=== PATIENT | female | born 1955 | race Caucasian/White ===

== ENCOUNTER 2019-12-09 15:07 | Outpatient (CLI) | payer OTHER, SELFPAY ==
--- NOTE | ~2019-12-09 | CT_ITS ---
EXAMINATION: CT pelvis wo con EXAM DATE: 12/09/2019 15:40 INDICATION: Right lower quadrant pain. TECHNIQUE: Spiral CT pelvis wo con was performed without contrast. Axial, coronal and sagittal imag es were reviewed. The dose-length product (DLP) for this examination was 376.26 mGy-cm. The exposur e was tailored according to patient size (auto mA exposure control), and iterative reconstruction ( IR) was used as additional dose reduction technique. There is no prior study for comparison. FINDINGS: No inguinal hernias. Appendix is normal. Unremarkable imaged portions of colon and small janie wel. Uterus and bladder are unremarkable. No pelvic lymphadenopathy. There are no osseous abnormaliti es identified. IMPRESSION: Unremarkable CT pelvis exam. Reviewed, dictated and finalized at location A. [facility]
== END 2019-12-09 15:08 | disposition home or self-care (01) ==
LOC: ANHIMG 15:16
PROVIDERS: PCP Family Medicine Adolescent Medicine; Visit Provider Surgery
DX: R10.31 Right lower quadrant pain (principal)
CPT/HCPCS: 72192

== ENCOUNTER 2020-05-29 15:28 | Outpatient (CLI) | payer OTHER, SELFPAY ==
--- NOTE | ~2020-05-29 | MM_ITS ---
EXAMINATION: MM screening jo-ann BI w apple HISTORY: Screening mammogram TECHNIQUE: Craniocaudal and mediolateral oblique 3-D tomosynthesis images were obtained and synthetic 2-D images were generated. CAD analysis was submitted and interpreted. COMPARISON: No prior mammogram is available for comparison at this institution. BREAST PARENCHYMAL COMPOSITION: The breasts are heterogeneously dense, which may obscure small masses . FINDINGS: There is no evidence of suspicious mass, calcification, or architectural distortion to sugg est malignancy in either breast. There has been no suspicious interval change. IMPRESSION: 1. No mammographic evidence of malignancy. 2. Recommend routine screening mammography in one year. BI-RADS Category 1: Negative Reviewed, dictated and finalized at location A.
== END 2020-05-29 15:29 | disposition home or self-care (01) ==
LOC: ANHIMG 15:30
PROVIDERS: PCP Family Medicine Adolescent Medicine; Visit Provider Nurse Practitioner Obstetrics & Gynecology
DX: Z12.31 Encounter for screening mammogram for malignant neoplasm of breast (principal)
CPT/HCPCS: 77063; 77067

== ENCOUNTER 2020-05-30 07:37 | Outpatient (CLI) | payer OTHER, SELFPAY ==
[2020-05-30 08:04] LABS: Basophils Percent Auto 1.1 % (0.2-1.2); Eosinophils Absolute Auto 0.1 K/mm3 (0-0.3); Eosinophils Percent Auto 2.5 % (0-4.4); Hematocrit 42.1 % (37.0-47.0); Hemoglobin 13.9 g/dL (12.0-15.0); Lymphocytes Absolute Auto 1.62 K/mm3 (0.9-3.2); Lymphocytes Percent Auto 45.9 % (18.3-44.2); Mean Corpuscular Hemoglobin 30.8 pg (26-34); Mean Corpuscular Volume 93.1 fl (80-100); Mean Platelet Volume 11.5 fl (7.4-10.4); Monocytes Absolute Auto 0.4 K/mm3 (0.1-0.6); Monocytes Percent Auto 11.6 % (2.6-8.5); Neutrophils Absolute Auto 1.4 K/mm3 (1.3-6.7); Neutrophils Percent Auto 38.9 % (45.5-73.1); Platelet Count Result 289 k/mm3 (150-375); Red Blood Count 4.52 M/mm3 (4.2-5.4); Red Cell Distribution Width 13.2 % (11.5-14.5); White Blood Count 3.5 K/mm3 (4.5-10.0)
[2020-05-30 08:22] LABS: Alanine Aminotransferase 16 U/L (4-35); Albumin Level 4.2 g/dL (3.5-5.1); Alkaline Phosphatase 64 U/L (38-126); Anion Gap 8.9 mmol/L (7-16); Aspartate Amino Transferase 25 U/L (14-36); Bilirubin,Total 0.5 mg/dL (0.2-1.3); Blood Urea Nitrogen 9 mg/dL (7-17); Calcium 9.4 mg/dL (8.4-10.2); Carbon Dioxide 31 mmol/L (22-30); Chloride 102 mmol/L (98-107); Cholesterol 193 mg/dL (0-200); Estimated Glomerular Filt Rate > 60; Glucose 96 mg/dL (65-105); HDL Direct 53 mg/dL; Potassium 3.9 mmol/L (3.4-5.0); Sodium 138 mmol/L (137-145); Triglycerides 73 mg/dL (<150)
[2020-05-30 08:23] LABS: Add Urine Microscopic? YES; Appearance Urine Clear (Clear); Bacteria Urine Trace /hpf; Bilirubin Urine Negative (Negative); Blood Urine Negative (Negative); Color Urine Yellow (Yellow); Glucose Urine UA Negative (Negative); Ketones Urine Negative (Negative); Leukocyte Esterase Ur Trace LEU/UL (Negative); Mucus Urine Rare /lpf; Nitrate Urine Negative (Negative); Protein Urine Negative (Negative); RBC Urine 0-2 /hpf (0-2); Specific Grav Ur 1.014 (1.001-1.035); Squamous Epithelial Cell Urine Occasional /hpf (Few); Urobilinogen Urine Negative mg/dL (<2.0); WBC Urine 0-3 /hpf
[2020-05-30 08:33] LABS: LDL Cholesterol Direct 106 mg/dL
[2020-05-30 09:00] LABS: Vitamin D 25 Hydroxy 70.1 ng/mL
== END 2020-05-30 07:38 | disposition home or self-care (01) ==
PROVIDERS: PCP Family Medicine Adolescent Medicine; Visit Provider Nurse Practitioner Obstetrics & Gynecology
DX: Z00.00 Encounter for general adult medical examination without abnormal findings (principal)
CPT/HCPCS: 36415; 80053; 80061; 81001; 82306; 85025

== ENCOUNTER 2020-07-05 09:34 | Outpatient (CLI) | payer OTHER, SELFPAY ==
[2020-07-05 11:26] LABS: Thyroid Stimulating Hormone < 0.015 uIU/mL (0.465-4.680)
[2020-07-08 07:35] LABS: Thyroglobulin <0.1 ng/mL (2.8-40.9); Thyroglobulin Antibodies <1 IU/mL (<=1)
== END 2020-07-05 09:35 | disposition home or self-care (01) ==
LOC: ANHLAB 09:36
PROVIDERS: PCP Family Medicine Adolescent Medicine; Visit Provider Family Medicine Adolescent Medicine
DX: Z85.850 Personal history of malignant neoplasm of thyroid (principal); E89.0 Postprocedural hypothyroidism
CPT/HCPCS: 36415; 84432; 84436; 84443; 86800

== ENCOUNTER 2020-07-31 16:07 | Outpatient (CLI) | payer OTHER, SELFPAY ==
[2020-07-31 18:40] LABS: Free T4 Free Thyroxine 1.66 ng/mL (0.78-2.19)
== END 2020-07-31 16:08 | disposition home or self-care (01) ==
PROVIDERS: PCP Family Medicine Adolescent Medicine; Visit Provider Family Medicine Adolescent Medicine
DX: E89.0 Postprocedural hypothyroidism (principal); Z85.850 Personal history of malignant neoplasm of thyroid
CPT/HCPCS: 36415; 84439; 84481

== ENCOUNTER 2021-01-11 12:46 | Outpatient (CLI) | payer OTHER, SELFPAY ==
--- NOTE | ~2021-01-11 | US_ITS ---
EXAMINATION: US soft tissue groin RT DATE: 01/11/2021 13:24 INDICATION: Right groin pain. TECHNIQUE: Multiple grayscale and Doppler ultrasound images of the right inguinal region were obtaine d. COMPARISON: CT pelvis 12/09/2019 FINDINGS: There are normal lymph nodes in the right inguinal region in the patient's area of concern. IMPRESSION: 1. No abnormal mass or lymphadenopathy in the patient's area of concern. Reviewed, dictated and finalized at location A. 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
== END 2021-01-11 12:47 | disposition home or self-care (01) ==
PROVIDERS: PCP Family Medicine Adolescent Medicine; Visit Provider Surgery
DX: R10.31 Right lower quadrant pain (principal)
CPT/HCPCS: 76882

== ENCOUNTER 2021-06-06 16:08 | Outpatient (CLI) | payer OTHER, SELFPAY ==
--- NOTE | ~2021-06-06 | MM_ITS ---
EXAMINATION: MM screening jo-ann BI w apple HISTORY: Screening TECHNIQUE: Craniocaudal and mediolateral oblique 3-D tomosynthesis images were obtained and synthetic 2-D images were generated. CAD analysis was submitted and interpreted. COMPARISON: Comparison to multiple prior studies sequentially, with oldest reviewed study dated 04/2015. BREAST PARENCHYMAL COMPOSITION: The breasts are extremely dense, which lowers the sensitivity of mamm ography. FINDINGS: There is no evidence of suspicious mass, calcification, or architectural distortion to sugg est malignancy in either breast. There has been no suspicious interval change. IMPRESSION: 1. No mammographic evidence of malignancy. 2. Recommend routine screening mammography in one year. BI-RADS Category 1: Negative Reviewed, dictated and finalized at location A.
== END 2021-06-06 16:09 | disposition home or self-care (01) ==
LOC: ANHIMG 16:11
PROVIDERS: PCP Family Medicine Adolescent Medicine; Visit Provider Obstetrics & Gynecology
DX: Z12.31 Encounter for screening mammogram for malignant neoplasm of breast (principal)
CPT/HCPCS: 77063; 77067

== ENCOUNTER 2021-06-29 07:21 | Outpatient (CLI) | payer OTHER, SELFPAY ==
[2021-06-29 07:54] LABS: Basophils Absolute Auto 0.1 K/mm3 (0.0-0.1); Basophils Percent Auto 1.5 % (0.2-1.2); Eosinophils Absolute Auto 0.1 K/mm3 (0-0.3); Eosinophils Percent Auto 3.3 % (0-4.4); Hematocrit 41.8 % (37.0-47.0); Hemoglobin 13.6 g/dL (12.0-15.0); Lymphocytes Absolute Auto 1.47 K/mm3 (0.9-3.2); Lymphocytes Percent Auto 43.8 % (18.3-44.2); Mean Corpuscular HGB Conc 32.5 g/dl (32-36); Mean Corpuscular Hemoglobin 31.3 pg (26-34); Mean Corpuscular Volume 96.1 fl (80-100); Mean Platelet Volume 10.3 fl (7.4-10.4); Monocytes Absolute Auto 0.3 K/mm3 (0.1-0.6); Monocytes Percent Auto 8.9 % (2.6-8.5); Neutrophils Absolute Auto 1.4 K/mm3 (1.3-6.7); Neutrophils Percent Auto 42.5 % (45.5-73.1); Platelet Count Result 279 k/mm3 (150-375); Red Blood Count 4.35 M/mm3 (4.2-5.4); Red Cell Distribution Width 12.9 % (11.5-14.5); White Blood Count 3.4 K/mm3 (4.5-10.0)
[2021-06-29 08:05] LABS: Alanine Aminotransferase 22 U/L (4-35); Albumin Level 4.2 g/dL (3.5-5.1); Alkaline Phosphatase 50 U/L (38-126); Anion Gap 3 mmol/L (8-16); Aspartate Amino Transferase 33 U/L (14-36); Bilirubin,Total 0.3 mg/dL (0.2-1.3); Blood Urea Nitrogen 16 mg/dL (7-17); Calcium 9.3 mg/dL (8.4-10.2); Carbon Dioxide 32 mmol/L (22-30); Chloride 100 mmol/L (98-107); Cholesterol 198 mg/dL (0-200); Estimated Glomerular Filt Rate > 60; Glucose 95 mg/dL (65-110); HDL Direct 69 mg/dL; Potassium 4.2 mmol/L (3.4-5.0); Sodium 135 mmol/L (137-145); Triglycerides 40 mg/dL (<150)
[2021-06-29 08:14] LABS: Hemoglobin A1C 5.5 % (<5.7)
[2021-06-29 08:15] LABS: LDL Cholesterol Direct 96 mg/dL
== END 2021-06-29 07:22 | disposition home or self-care (01) ==
PROVIDERS: PCP Family Medicine Adolescent Medicine; Visit Provider Obstetrics & Gynecology
DX: Z01.419 Encounter for gynecological examination (general) (routine) without abnormal findings (principal)
CPT/HCPCS: 36415; 80053; 80061; 83036; 85025

== ENCOUNTER 2021-06-29 07:26 | Outpatient (CLI) | payer OTHER, SELFPAY ==
[2021-06-29 08:35] LABS: Thyroid Stimulating Hormone 0.109 uIU/mL (0.465-4.680)
[2021-06-29 08:42] LABS: Free T4 Free Thyroxine 1.33 ng/mL (0.78-2.19)
[2021-07-02 05:14] LABS: Thyroglobulin 0.1 ng/mL (2.8-40.9); Thyroglobulin Antibodies <1 IU/mL (<=1)
[2021-07-04 07:06] LABS: Triiodothyronine T3 Free 2.3 pg/mL (2.3-4.2)
== END 2021-06-29 07:27 | disposition home or self-care (01) ==
PROVIDERS: PCP Family Medicine Adolescent Medicine; Visit Provider Family Medicine Adolescent Medicine
DX: E89.0 Postprocedural hypothyroidism (principal); Z85.850 Personal history of malignant neoplasm of thyroid
CPT/HCPCS: 36415; 84432; 84439; 84443; 84481; 86800

== ENCOUNTER 2021-09-03 07:56 | Outpatient (CLI) | payer OTHER, SELFPAY ==
--- NOTE | ~2021-09-03 | DEXA_ITS ---
Bone Density Report Name: Altagracia Chopra Age: 66 Sex: Female Ethnicity: White Date of : 1955 Indication: osteopenia; parental hip fracture; height loss; cancer; postmenopausal Referring Provider: Colette Keenan Study: Bone densitometry was performed. Exam Date: September 03, 2021 Accession number: [id number] Bone Density: Region BMD T-score Z-score Classification AP Spine (L1-L4) 0.808 -2.2 -0.5 Osteopenia Femoral Neck (Left) 0.555 -2.6 -1.2 Osteoporosis Total Hip (Left) 0.704 -1.9 -0.8 Osteopenia Total Hip Bilateral Avg 0.698 -2.0 -0.8 Osteopenia Femoral Neck (Right) 0.601 -2.2 -0.8 Osteopenia Total Hip (Right) 0.692 -2.0 -0.9 Osteopenia World Health Organization criteria for BMD impression classify patients as: Normal (T-score at or above -1.0), Osteopenia (T-score between -1.0 and -2.5), or Osteoporosis (T-score at or below -2.5). 10-year Fracture Risk: FRAX not reported because: Some T-score for Spine Total or Hip Total or Femoral Neck at or below -2.5 Previous Exams: Region Exam Age BMD T-score BMD Change BMD Change Date g/cm2 vs Baseline vs Previous AP Spine(L1-L4) 09/03/2021 66 0.808 -2.2 -0.061(-7.0%)# -0.024(-2.9%)* 05/05/2019 63 0.832 -2.0 -0.036(-4.2%)# 0.016(2.0%) 04/09/2018 62 0.816 -2.1 -0.052(-6.0%)# -0.057(-6.5%)# 12/16/2013 58 0.873 -1.6 0.005(0.5%) 0.005(0.5%) 10/29/2011 56 0.868 -1.6 Total Hip(Left) 09/03/2021 66 0.704 -1.9 -0.129(-15.5%) -0.079(-10.1%) 05/05/2019 63 0.783 -1.3 -0.050(-6.0%)# 0.000(0.1%) 04/09/2018 62 0.783 -1.3 -0.051(-6.1%)# -0.057(-6.8%)# 12/16/2013 58 0.840 -0.8 0.006(0.7%) 0.006(0.7%) 10/29/2011 56 0.834 -0.9 Total Hip(Right) 09/03/2021 66 0.692 -2.0 -0.081(-10.5%) -0.053(-7.1%)* 05/05/2019 63 0.745 -1.6 -0.028(-3.7%)# 0.000(0.0%) 04/09/2018 62 0.745 -1.6 -0.028(-3.6%)# -0.042(-5.4%)# 12/16/2013 58 0.788 -1.3 0.014(1.8%) 0.014(1.8%) 10/29/2011 56 0.774 -1.4 *Denotes significance at 95% confidence level, LSC for AP Spine = 0.022 g/cm2, LSC for Total Hip = 0.027 g/cm2 Clinical Information Provided by Patient: Parent has had a hip fracture Has used the following medications: Vitamin D, Calcium Has the following medical conditions: Cancer Patient maximum height was 67 Menopause Age: 49 Onset of menses at age 16 Number of children 2 Impression: The patient has osteoporosis, based on the Left
== END 2021-09-03 07:57 | disposition home or self-care (01) ==
LOC: ANHIMG 07:58
PROVIDERS: PCP Family Medicine Adolescent Medicine; Visit Provider Obstetrics & Gynecology
DX: Z13.820 Encounter for screening for osteoporosis (principal); M85.89 Other specified disorders of bone density and structure, multiple sites; M81.0 Age-related osteoporosis without current pathological fracture
CPT/HCPCS: 77080

== ENCOUNTER 2021-10-15 01:28 | Day surgery (SDC) | payer OTHER, SELFPAY ==
[2021-10-05 12:47] VITALS: BMI 20.2
[2021-10-15 06:23] VITALS: BP 141/58; PULSE 72; RESP 18; TEMP 36.6; O2SAT 100
[2021-10-15] MEDS: LACTATED RINGERS 1,000 ML 150 ML IV CONT (06:30)
--- NOTE | 2021-10-15 06:35 | SUR.PREOP ---
PT STATED SHE HAD PASSED OUT IN THE NIGHT AT HOME, WAS WITH HER, NO INJURIES, FEELING WEAK THIS AM. IV STARTED AND FLUIDS RUNNING WIDE OPEN. PT AWAKE AND ALERT THIS AM. VS 141/58, 72. DR MONSON NOTIFIED, NO NEW ORDERS RECEIVED.
--- NOTE | 2021-10-15 06:44 | WPDANESEPPF ---
Anes - Initial Pre Proc Eval Procedure: Operation Date: 10/15/21 07:30 Proposed Procedures p Screening Colonoscopy - Gallito Lynn MD Date/Time: 10/15/21 06:44 Surgeon: Gallito Lynn MD Pre Op Diagnosis: hx of colon polyps Patient Data Age: 66 Gender: F Height: 1.68 m Weight: 58 kg Last Vital Signs Temp 36.6 C 10/15/21 06:23 Pulse 72 10/15/21 06:23 Resp 18 10/15/21 06:23 BP 141/58 H 10/15/21 06:23 Pulse Ox 100 10/15/21 06:23 Allergies Allergy/AdvReac Type Severity Reaction Status Date / Time Antihistamines - Alkylamine Allergy Severe DIFFICULTY Verified 10/15/21 06:21 BREATHING, INTERNAL QUIVERING Antihistamines - Ethanolamine Allergy Severe DIFFICULTY Verified 10/15/21 06:21 BREATHING, INTERNAL QUIVERING Antihistamines - Allergy Severe DIFFICULTY Verified 10/15/21 06:21 Ethylenediamine BREATHING, INTERNAL QUIVERING Antihistamines - Piperazine Allergy Severe DIFFICULTY Verified 10/15/21 06:21 BREATHING, INTERNAL QUIVERING Antihistamines - Piperidine Allergy Severe DIFFICULTY Verified 10/15/21 06:21 BREATHING, INTERNAL QUIVERING Penicillins Allergy Mild HIVES Verified 10/15/21 06:21 amoxicillin Allergy Unknown Hives Verified 10/15/21 06:21 naproxen Allergy Unknown Mouth sores Verified 10/15/21 06:21 midazolam AdvReac Unknown PROLONGED Verified 10/15/21 06:21 VOMITING Home Medications Medication Instructions Recorded Confirmed Type Lactobacillus 1 cap PO DAILY 01/02/21 10/05/21 History acidophilus-Bifidobac.animalis 2 billion cell capsule ascorbic acid 1,000 1,000 ea PO DAILY 01/02/21 10/05/21 [address] rd-lamvnrpxymwg-cbmdhbef powder effervescent pack calcium carbonate 600 mg-vitamin 1 tablet PO DAILY 01/02/21 10/05/21 History D3 20 mcg (800 unit) chewable tablet calcium polycarbophil 625 mg tablet 2,500 mg PO BID 01/02/21 10/05/21 History mrnycoeqxejr-edmbauub-eftwfxv-folic 1 tablet PO DAILY 01/02/21 10/05/21 History acid 400 mcg-vit K1 20 mcg tablet christiana xnhhyb-Oa-hcuAvpehhpfc-tea 500 tablet PO DAILY 10/05/21 10/05/21 History [Apple Cider Vinegar Plus] levothyroxine 137 mcg PO DAILY 10/05/21 10/05/21 History Patient hx anesthesia problems: none Family hx anesthesia problems: none Results Review: All pre-operative results and documents have been reviewed as part of the pre-operative evaluation. [facility] Past Medical History Medical History History of thyroid cancer Surgical History Surgical History H/O partial thyroidectomy History of carpal tunnel release of both wrists 1991 History of delivery x2 1986 & 1997 History of dilatation and curettage x2 1996 & 2015 Status post complete thyroidectomy 2016 Family History Family History Other Bladder cancer CAD (coronary artery disease) Dementia Diabetes mellitus Heart disease Hypertension Lung cancer Parkinson disease Rectal cancer Skin cancer Social History Social History Smoking status: Never smoker Alcohol intake: never Substance use type: does not use Living arrangements: with family 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
--- NOTE | 2021-10-15 07:11 | PM.HPGS ---
History of Present Illness History of Present Illness Consent: Risks, benefits, and alternatives have been discussed and questions answered. Patient agrees to proceed with procedure. Chief complaint: hx of colon polyps Narrative: Altagracia Chopra is a 66 year old female with colon polyps 3 years ago, also brother recently diagnosed with colon cancer Review of Systems Constitutional: Constitutional: Denies headache(s) and Denies weakness Eyes: Eyes: Denies blurry vision ENT: Reports Normal hearing present, Denies headache(s) and Denies neck pain Cardiovascular: Cardiovascular: Denies chest pain and Denies dyspnea Respiratory: Respiratory: Denies dyspnea Gastrointestinal: Gastrointestinal: Reports no additional gastrointestinal complaints Genitourinary: Genitourinary: Denies dysuria Musculoskeletal: Musculoskeletal: Denies neck pain Integumentary/Breasts: Skin/Breast: Denies dry skin Neurologic: Reports Normal hearing present, Denies headache(s) and Denies weakness Psychiatric: Psychiatric: Denies anxiety Endocrine: Endocrine: Denies change in body appearance Hematologic/Lymphatic: Hematologic/Lymphatic: Denies easy bleeding Allergic/Immunologic: Allergic/Immunologic: Denies urticaria PMFSH Past Medical History Medical History (Updated 10/15/21 @ 07:11 by Gallito Lynn MD) Adenomatous colon polyp History of thyroid cancer Surgical History Surgical History H/O partial thyroidectomy History of carpal tunnel release of both wrists 1992 History of delivery x2 1986 & 1997 History of dilatation and curettage x2 1996 & 2016 Status post complete thyroidectomy 2016 Family History Family History Other Bladder cancer CAD (coronary artery disease) Dementia Diabetes mellitus Heart disease Hypertension Lung cancer Parkinson disease Rectal cancer Skin cancer Social History Social History Smoking status: Never smoker Alcohol intake: never Substance use type: does not use Living arrangements: with family 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: No Meds Home Medications and Allergies Home Medications Medication Instructions Recorded Confirmed Type Lactobacillus 1 cap PO DAILY 01/02/21 10/05/21 History acidophilus-Bifidobac.animalis 2 billion cell capsule ascorbic acid 1,000 1,000 ea PO DAILY 01/02/21 10/05/21 History hj-qhqrifoejcne-bkkhgdzd powder effervescent pack calcium carbonate 600 mg-vitamin 1 tablet PO DAILY 01/02/21 10/05/21 History D3 20 mcg (800 unit) chewable tablet calcium polycarbophil 625 mg tablet 2,500 mg PO BID 01/02/21 10/05/21 History uibdndfinqde-zptugkcp-tqeegjw-folic 1 tablet PO DAILY 01/02/21 10/05/21 History acid 400 mcg-vit K1 20 mcg tablet christiana uiisur-Be-kmcTxfldyubk-tea 500 tablet PO DAILY 10/05/21 10/05/21 History [Apple Cider Vinegar Plus] levothyroxine 137 mcg PO DAILY 10/05/21 10/05/21 History Allergies Allergy/AdvReac Type Severity Reaction Status Date / Time Antihistamines - Alkylamine Allergy Severe DIFFICULTY Verified 10/15/21 06:21 BREATHING, INTERNAL QUIVERING Antihistamines - Ethanolamine Allergy Severe DIFFICULTY Verified 10/15/21 06:21 BREATHING, INTERNAL QUIVERING Antihistamines - Allergy Severe DIFFICULTY Verified 10/15/21 06:21 Ethylenediamine BREATHING, INTERNAL QUIVERING Antihistamines - Piperazine Allergy Severe DIFFICULTY Verified 10/15/21 06:21 BREATHING, INTERNAL QUIVERING Antihistamines - Piperidine Allergy Severe DIFFICULTY Verified 10/15/21 06:21 BREATHING, INTERNAL QUIVERING Penicillins Allergy Mild HIVES Verified 10/15/21 06:21 amoxicillin Allergy Unknown Hives Verified 10/15/21 06
[2021-10-15 07:50] VITALS: BP 96/46; PULSE 74; RESP 16; O2SAT 98
[2021-10-15 08:00] VITALS: BP 117/58; PULSE 90; RESP 20; O2SAT 99
[2021-10-15 08:08] VITALS: BP 109/61; PULSE 65; RESP 18; O2SAT 99
== END 2021-10-15 08:24 | disposition home or self-care (01) ==
PROVIDERS: PCP Family Medicine Adolescent Medicine; Visit Provider Internal Medicine Gastroenterology
PROC: 0DJD8ZZ Inspection of Lower Intestinal Tract, Via Natural or Artificial Opening Endoscopic (ICD-10-PCS; CPT 45378; principal; 2021-10-15 07:30)
DX: Z12.11 Encounter for screening for malignant neoplasm of colon (principal); D12.3 Benign neoplasm of transverse colon; K63.5 Polyp of colon; K57.30 Diverticulosis of large intestine without perforation or abscess without bleeding; K64.8 Other hemorrhoids; E89.0 Postprocedural hypothyroidism; Z85.850 Personal history of malignant neoplasm of thyroid; Z80.0 Family history of malignant neoplasm of digestive organs
CPT/HCPCS: 45385; 45380; 88305; J2704; J7120

== ENCOUNTER 2022-06-24 15:44 | Outpatient (CLI) | payer OTHER, SELFPAY ==
--- NOTE | ~2022-06-24 | MM_ITS ---
EXAMINATION: MM screening jo-ann BI w apple HISTORY: Screening TECHNIQUE: Craniocaudal and mediolateral oblique 3-D tomosynthesis images were obtained and synthetic 2-D images were generated. CAD analysis was submitted and interpreted. COMPARISON: Comparison to multiple prior studies sequentially, with oldest reviewed study dated 03/19. BREAST PARENCHYMAL COMPOSITION: The breasts are extremely dense, which lowers the sensitivity of mamm ography. FINDINGS: There is no evidence of suspicious mass, calcification, or architectural distortion to sugg est malignancy in either breast. There has been no suspicious interval change. IMPRESSION: 1. No mammographic evidence of malignancy. 2. Recommend routine screening mammography in one year. BI-RADS Category 1: Negative Reviewed, dictated and finalized at location A.
== END 2022-06-24 15:45 | disposition home or self-care (01) ==
LOC: ANHIMG 15:46
PROVIDERS: PCP Family Medicine Adolescent Medicine; Visit Provider Obstetrics & Gynecology
DX: Z12.31 Encounter for screening mammogram for malignant neoplasm of breast (principal)
CPT/HCPCS: 77063; 77067

== ENCOUNTER 2022-07-16 08:28 | Outpatient (CLI) | payer OTHER, SELFPAY ==
[2022-07-16 09:31] LABS: Basophils Absolute Auto 0.1 K/mm3 (0.0-0.1); Basophils Percent Auto 1.3 % (0.2-1.2); Eosinophils Absolute Auto 0.2 K/mm3 (0-0.3); Eosinophils Percent Auto 5.6 % (0-4.4); Hematocrit 42.9 % (37.0-47.0); Hemoglobin 14.4 g/dL (12.0-15.0); Immature Granulocyte Absolute 0.01 K/mm3 (0.00-0.031); Immature Granulocyte Percent A 0.3 % (0-0.5); Lymphocytes Absolute Auto 1.51 K/mm3 (0.9-3.2); Lymphocytes Percent Auto 38.3 % (18.3-44.2); Mean Corpuscular HGB Conc 33.6 g/dl (32-36); Mean Corpuscular Hemoglobin 31.1 pg (26-34); Mean Corpuscular Volume 92.7 fl (80-100); Mean Platelet Volume 10.8 fl (7.4-10.4); Monocytes Absolute Auto 0.4 K/mm3 (0.1-0.6); Monocytes Percent Auto 10.7 % (2.6-8.5); Neutrophils Absolute Auto 1.7 K/mm3 (1.3-6.7); Neutrophils Percent Auto 43.8 % (45.5-73.1); Platelet Count Result 302 k/mm3 (150-375); Red Blood Count 4.63 M/mm3 (4.2-5.4); Red Cell Distribution Width 13.1 % (11.5-14.5); White Blood Count 3.9 K/mm3 (4.5-10.0)
[2022-07-16 09:48] LABS: Alanine Aminotransferase 20 U/L (6-35); Albumin Level 4.2 g/dL (3.5-5.1); Alkaline Phosphatase 55 U/L (38-126); Anion Gap 7 mmol/L (8-16); Aspartate Amino Transferase 35 U/L (14-36); Bilirubin,Total 0.6 mg/dL (0.2-1.3); Blood Urea Nitrogen 14 mg/dL (7-17); Calcium 9.4 mg/dL (8.4-10.2); Carbon Dioxide 29 mmol/L (22-30); Chloride 103 mmol/L (98-107); Cholesterol 247 mg/dL (0-200); Estimated Glomerular Filt Rate > 60; Glucose 90 mg/dL (65-110); HDL Direct 70 mg/dL; Potassium 4.6 mmol/L (3.4-5.0); Sodium 139 mmol/L (137-145); Triglycerides 96 mg/dL (<150)
[2022-07-16 09:50] LABS: Alanine Aminotransferase 20 U/L (6-35); Albumin Level 4.4 g/dL (3.5-5.1); Alkaline Phosphatase 58 U/L (38-126); Anion Gap 9 mmol/L (8-16); Aspartate Amino Transferase 35 U/L (14-36); Bilirubin,Total 0.6 mg/dL (0.2-1.3); Blood Urea Nitrogen 13 mg/dL (7-17); Calcium 9.5 mg/dL (8.4-10.2); Carbon Dioxide 29 mmol/L (22-30); Chloride 102 mmol/L (98-107); Estimated Glomerular Filt Rate > 60; Glucose 89 mg/dL (65-110); Potassium 4.4 mmol/L (3.4-5.0); Sodium 140 mmol/L (137-145)
[2022-07-16 09:52] LABS: Hemoglobin A1C 5.5 % (<5.7)
[2022-07-16 09:59] LABS: LDL Cholesterol Direct 118 mg/dL
[2022-07-16 10:15] LABS: Thyroid Stimulating Hormone < 0.015 uIU/mL (0.465-4.680)
[2022-07-16 10:23] LABS: Vitamin D 25 Hydroxy 53.3 ng/mL
[2022-07-19 04:33] LABS: Thyroglobulin 0.1 ng/mL (2.8-40.9); Thyroglobulin Antibodies <1 IU/mL (<=1)
== END 2022-07-16 08:29 | disposition home or self-care (01) ==
PROVIDERS: Obstetrics & Gynecology; PCP Family Medicine Adolescent Medicine; Visit Provider Family Medicine Adolescent Medicine
DX: E89.0 Postprocedural hypothyroidism (principal); Z85.850 Personal history of malignant neoplasm of thyroid
CPT/HCPCS: 36415; 80053; 80061; 82306; 83036; 84432; 84443; 85025; 86800

== ENCOUNTER 2022-07-16 08:29 | Outpatient (CLI) | payer OTHER, SELFPAY | END 2022-07-16 08:30 | disposition home or self-care (01) | PROVIDERS: PCP Family Medicine Adolescent Medicine; Visit Provider Obstetrics & Gynecology | DX: Z00.00 Encounter for general adult medical examination without abnormal findings (principal) | CPT/HCPCS: 36415; 80053; 80061; 82306; 83036; 85025 ==

== ENCOUNTER 2022-07-23 11:15 | Outpatient (CLI) | payer OTHER, SELFPAY ==
[2022-07-23 13:22] LABS: Free T4 Free Thyroxine 1.86 ng/mL (0.78-2.19)
[2022-07-27 04:43] LABS: Thyroglobulin <0.1 ng/mL (2.8-40.9); Thyroglobulin Antibodies <1 IU/mL (<=1)
== END 2022-07-23 11:16 | disposition home or self-care (01) ==
LOC: ANHLAB 11:18
PROVIDERS: PCP Family Medicine Adolescent Medicine; Visit Provider Family Medicine Adolescent Medicine
DX: E89.0 Postprocedural hypothyroidism (principal); Z85.850 Personal history of malignant neoplasm of thyroid
CPT/HCPCS: 36415; 84432; 84439; 86800

== ENCOUNTER 2023-07-09 15:59 | Outpatient (CLI) | payer OTHER, SELFPAY ==
[2023-07-09 16:20] LABS: Basophils Absolute Auto 0.1 K/mm3 (0.0-0.1); Basophils Percent Auto 1.1 % (0.2-1.2); Eosinophils Absolute Auto 0.2 K/mm3 (0-0.3); Eosinophils Percent Auto 2.8 % (0-4.4); Hematocrit 40.4 % (37.0-47.0); Hemoglobin 13.2 g/dL (12.0-15.0); Immature Granulocyte Absolute 0.01 K/mm3 (0.00-0.031); Immature Granulocyte Percent A 0.2 % (0-0.5); Lymphocytes Absolute Auto 2.22 K/mm3 (0.9-3.2); Lymphocytes Percent Auto 39.4 % (18.3-44.2); Mean Corpuscular HGB Conc 32.7 g/dl (32-36); Mean Corpuscular Hemoglobin 30.3 pg (26-34); Mean Corpuscular Volume 92.7 fl (80-100); Mean Platelet Volume 10.3 fl (7.4-10.4); Monocytes Absolute Auto 0.6 K/mm3 (0.1-0.6); Monocytes Percent Auto 9.8 % (2.6-8.5); Neutrophils Absolute Auto 2.6 K/mm3 (1.3-6.7); Neutrophils Percent Auto 46.7 % (45.5-73.1); Platelet Count Result 313 k/mm3 (150-375); Red Blood Count 4.36 M/mm3 (4.2-5.4); Red Cell Distribution Width 12.9 % (11.5-14.5); White Blood Count 5.6 K/mm3 (4.5-10.0)
[2023-07-09 16:47] LABS: CRP < 0.5 mg/dL (<1.0); Uric Acid 3.2 mg/dL (2.5-7.5)
[2023-07-09 16:48] LABS: Rheumatoid Factor < 12.0 IU/ML (<12)
[2023-07-09 16:56] LABS: Erythrocyte Sedimentation Rate 17 mm/hr (0-20)
[2023-07-16 05:56] LABS: Anti Nuclear Antibody Pattern Nuclear, Speckled
== END 2023-07-09 16:00 | disposition home or self-care (01) ==
PROVIDERS: PCP Family Medicine Adolescent Medicine; Visit Provider Orthopaedic Surgery
DX: M25.40 Effusion, unspecified joint (principal)
CPT/HCPCS: 36415; 84550; 85025; 85652; 86038; 86039; 86140; 86430

== ENCOUNTER 2023-07-16 16:13 | Outpatient (CLI) | payer OTHER, SELFPAY ==
[2023-07-16 18:03] LABS: Thyroid Stimulating Hormone < 0.015 uIU/mL (0.465-4.680)
[2023-07-16 19:22] LABS: Free T4 Free Thyroxine 2.19 ng/mL (0.78-2.19)
[2023-07-19 04:59] LABS: Thyroglobulin <0.1 ng/mL (2.8-40.9); Thyroglobulin Antibodies <1 IU/mL (<=1)
== END 2023-07-16 16:14 | disposition home or self-care (01) ==
LOC: ANHLAB 16:15
PROVIDERS: PCP Family Medicine Adolescent Medicine; Visit Provider Family Medicine Adolescent Medicine
DX: E89.0 Postprocedural hypothyroidism (principal); Z85.850 Personal history of malignant neoplasm of thyroid
CPT/HCPCS: 36415; 84432; 84439; 84443; 86800

== ENCOUNTER 2023-07-17 15:36 | Outpatient (CLI) | payer OTHER, SELFPAY ==
--- NOTE | ~2023-07-17 | CT_ITS ---
Clinical Indication: Pain CT Scan of the Chest with Contrast: Technique: Contiguous sections were acquired throughout the chest after intravenous administration of 75 cc of Omnipaque 350. Dose reduction technique was used on this scan by utilizing automated exposu re control and iterative reconstruction technique. The dose-length product (DLP) was 135.29 mGy-cm. Findings: There is no evidence of any significant mediastinal, hilar or axillary lymphadenopathy. Small calcifi ed left hilar lymph nodes are noted. There is no filling defect in the pulmonary arterial tree to sug gest pulmonary embolus. There is no evidence of aortic dissection or aneurysm. There is no evidence of pleural or pericardial effusion. Several calcified granulomas noted. There is focal minimal groundglass opacities and groundglass nodu le in the right upper lobe (axial images 39-40). Images through the upper abdomen reveal no abnormalities. There are minimal chronic anterior wedging deformities of T12 and L1. Mild degenerative change of bilateral AC joints noted. Left os acromiale i s noted. No significant abnormality noted at the location of the BB/marker. Impression: No significant abnormality noted at the region of the the marker. Small focal groundglass opacity/nodule in the right upper lobe. According to Fleischner Society crite marta, consider follow-up CT in 12 months. Minimal chronic wedging deformities of T12 and L1. Evidence of prior granulomatous disease. Reviewed, dictated and finalized at [facility]. Impression: No significant abnormality noted at the region of the the marker. Small focal groundglass opacity/nodule in the right upper lobe. According to Fl eischner Society criteria, consider follow-up CT in 12 months. Minimal chronic wedging deformities of T12 and L1. Evidence of prior granulomatous disease.
[2023-07-17 15:56] LABS: Estimated Glomerular Filt Rate > 60
== END 2023-07-17 15:37 | disposition home or self-care (01) ==
LOC: ANHIMG 15:40
PROVIDERS: PCP Family Medicine Adolescent Medicine; Visit Provider Orthopaedic Surgery
DX: M25.519 Pain in unspecified shoulder (principal)
CPT/HCPCS: 71260; Q9967

== ENCOUNTER 2023-10-06 13:47 | Outpatient (CLI) | payer OTHER, SELFPAY ==
--- NOTE | ~2023-10-06 | MM_ITS ---
EXAMINATION: MM screening [facility] BI w apple HISTORY: Screening mammogram TECHNIQUE: Craniocaudal and mediolateral oblique 3-D tomosynthesis images were obtained and synthetic 2-D images were generated. CAD analysis was submitted and interpreted. COMPARISON: 06/24/2022, 06/06/2021, 05/29/2020 BREAST PARENCHYMAL COMPOSITION: The breasts are heterogeneously dense, which may obscure small masses . FINDINGS: No suspicious mass, calcification, or architectural distortion are identified in either francisco ast to suggest malignancy. There has been no suspicious interval change. IMPRESSION: 1. No mammographic evidence of malignancy. 2. Recommend routine screening mammography in one year. BI-RADS Category 1: Negative Reviewed, dictated and finalized at location A. 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
--- NOTE | ~2023-10-06 | DEXA_ITS ---
Bone Density Report Name: VELIA ESPARZA Age: 68 Sex: Female Ethnicity: White Date of : 1955 Indication: postmenopausal; screening for osteoporosis; parental hip fracture; height loss; prior fracture; cancer; Referring Provider: KVNG MENDOZA Study: Bone densitometry was performed. Exam Date: October 06, 2023 Accession number: [id number] Bone Density: Region BMD T-score Z-score Classification AP Spine(L1-L4) 0.826 -2.0 -0.2 Osteopenia Femoral Neck (Left) 0.556 -2.6 -1.1 Osteoporosis Total Hip (Left) 0.706 -1.9 -0.6 Osteopenia Femoral Neck (Right) 0.616 -2.1 -0.5 Osteopenia Total Hip (Right) 0.695 -2.0 -0.7 Osteopenia Femoral Neck Mean 0.586 -2.4 -0.8 Osteopenia Total Hip Mean 0.700 -2.0 -0.7 Osteopenia World Health Organization criteria for BMD impression classify patients as: Normal (T-score at or above -1.0), Osteopenia (T-score between -1.0 and -2.5), or Osteoporosis (T-score at or below -2.5). 10-year Fracture Risk: FRAX not reported because: Some T-score for Spine Total or Hip Total or Femoral Neck at or below -2.5 Prior hip or vertebral fracture Clinical Information Provided by Patient: Have had a previous hip or vertebral fracture Has had a low trauma fracture Parent has had a hip fracture Has used the following medications: Vitamin D, Calcium Has the following medical conditions: Cancer Patient maximum height was 67 Menopause Age: 49 Onset of menses at age 16 Number of children 2 Impression: The patient has established osteoporosis, based on the Left Femoral Neck T-score and the existence of a prior fracture. The patient has risk factors, including: parental hip fracture, previous fracture. Discussion: HIGH RISK OF FRACTURE. BONE DENSITY IS UNDESIRABLY LOW AT ONE OR MORE SKELETAL SITES, CONSISTENT WITH POSTMENOPAUSAL OSTEOPOROSIS. This patient's lowest T-score, in a patient who has previously fractured, meets the World Health Organization's (WHO) criteria for severe osteoporosis. In untreated patients, the risk of osteoporotic fracture increases approximately two-fold for each 1.0 SD decrease in T-score. Low bone density is not the only risk factor for fracture; also consider factors such as patient's age, frailty or poor health, risk of falling, risk of injury, previous osteoporotic fracture, family history of osteoporosis, cigarette smoking, low body weight, etc. Not everyone with low bone mineral density has osteoporosis; osteomalacia and other metabolic bone disorders should also be considered. Patients who have osteoporosis should be evaluated for specific diseases and conditions (secondary causes) that may cause or contribute to bone loss. The [place] [employer] Endocrinologists (AACE) and National Osteoporosis Foundation (NOF) recommend pharmacologic intervention for all postmenopausal women with a previous hip or vertebr
== END 2023-10-06 13:48 | disposition home or self-care (01) ==
PROVIDERS: PCP Family Medicine Adolescent Medicine; Visit Provider Family Medicine Adolescent Medicine
DX: Z12.31 Encounter for screening mammogram for malignant neoplasm of breast (principal); Z78.0 Asymptomatic menopausal state; M85.89 Other specified disorders of bone density and structure, multiple sites; M81.0 Age-related osteoporosis without current pathological fracture
CPT/HCPCS: 77063; 77067; 77080

== ENCOUNTER 2023-11-04 15:46 | Outpatient (CLI) | payer OTHER, SELFPAY ==
--- NOTE | ~2023-11-04 | XR_ITS ---
EXAM: XR knee RT 3V DATE: 11/04/2023 16:08 HISTORY: M25.561 - Pain in right knee, CHRONIC . COMPARISON: None available. FINDINGS: Decreased mineralization. No fracture or dislocation. No lytic or blastic lesion. Mild med ial and lateral joint space narrowing. Severe lateral patellofemoral joint space narrowing and mild l ateral subluxation. Moderate tricompartmental osteophytosis. No erosion or periosteal change. Small v olume knee joint effusion. IMPRESSION: Tricompartmental osteoarthritis the right knee, severe in the patellofemoral compartment. Reviewed, dictated and finalized at location K. CAL LABORATORY MANAGER IMPRESSION: Tricompartmental osteoarthritis the right knee, severe in the joseph lofemoral compartment.
--- NOTE | ~2023-11-04 | XR_ITS ---
XR knee LT 3V DATE: 11/04/2023 16:08 INDICATION: Chronic left knee pain with weightbearing TECHNIQUE: Wyatt, standing AP and lateral views COMPARISON: None FINDINGS: There is osteopenia. There is severe patellofemoral joint space narrowing and prominent periarticular spurring at the sow llofemoral compartment. There is mild periarticular spurring at the lateral femoral condyle. Medial and lateral compartment j oint spaces are relatively preserved. No radiopaque intra-articular loose body or chondrocalcinosis i s detected. No fracture or dislocation or joint effusion is detected. No periosteal reaction or bone destruction. IMPRESSION: Severe patellofemoral osteoarthritis Osteopenia Reviewed, dictated and finalized at location L. STANT TO THE VICE PRESIDENT
== END 2023-11-04 15:47 | disposition home or self-care (01) ==
PROVIDERS: PCP Family Medicine Adolescent Medicine; Visit Provider Orthopaedic Surgery
DX: M17.0 Bilateral primary osteoarthritis of knee (principal); M85.862 Other specified disorders of bone density and structure, left lower leg
CPT/HCPCS: 73562

== ENCOUNTER 2024-02-05 13:50 | Outpatient (CLI) | payer MEDICARE, SELFPAY ==
--- NOTE | 2024-02-05 14:01 | ECG_ITS ---
Measurements Intervals [place] Rate: 72 P: 54 WA: 135 QRS: 13 QRSD: 96 T: 56 QT: 369 QTc: 406 Interpretive Statements SINUS RHYTHM NORMAL ELECTROCARDIOGRAM NO PREVIOUS ECG AVAILABLE FOR COMPARISON Electronically Signed On 02-06-2024 7:36:02 CDT by Dawit Ortiz M.D.
[2024-02-05 14:34] LABS: Albumin Level 4.5 g/dL (3.5-5.1); Anion Gap 4 mmol/L (4-12); Blood Urea Nitrogen 18 mg/dL (7-17); Calcium 9.5 mg/dL (8.4-10.2); Carbon Dioxide 31 mmol/L (22-30); Chloride 100 mmol/L (98-107); Estimated Glomerular Filt Rate > 60; Glucose 150 mg/dL (65-110); Potassium 3.7 mmol/L (3.4-5.0); Sodium 135 mmol/L (137-145)
[2024-02-05 14:42] LABS: Basophils Percent Auto 0.7 % (0.2-1.2); Eosinophils Absolute Auto 0.1 K/mm3 (0-0.3); Hematocrit 44.6 % (37.0-47.0); Hemoglobin 14.6 g/dL (12.0-15.0); Immature Granulocyte Absolute 0.02 K/mm3 (0.00-0.031); Immature Granulocyte Percent A 0.3 % (0-0.5); Lymphocytes Absolute Auto 1.59 K/mm3 (0.9-3.2); Lymphocytes Percent Auto 27.1 % (18.3-44.2); Mean Corpuscular HGB Conc 32.7 g/dl (32-36); Mean Corpuscular Hemoglobin 30.6 pg (26-34); Mean Corpuscular Volume 93.5 fl (80-100); Mean Platelet Volume 10.9 fl (7.4-10.4); Monocytes Absolute Auto 0.4 K/mm3 (0.1-0.6); Monocytes Percent Auto 7.2 % (2.6-8.5); Neutrophils Absolute Auto 3.7 K/mm3 (1.3-6.7); Neutrophils Percent Auto 63.7 % (45.5-73.1); Platelet Count Result 295 k/mm3 (150-375); Red Blood Count 4.77 M/mm3 (4.2-5.4); Red Cell Distribution Width 13.2 % (11.5-14.5); White Blood Count 5.9 K/mm3 (4.5-10.0)
[2024-02-05 15:17] LABS: Urine Cotinine NEGATIVE
[2024-02-05 22:45] LABS: Hemoglobin A1C 5.5 % (<5.7)
== END 2024-02-05 13:51 | disposition home or self-care (01) ==
PROVIDERS: PCP Family Medicine Adolescent Medicine; Visit Provider Orthopaedic Surgery
DX: M17.0 Bilateral primary osteoarthritis of knee (principal); Z01.818 Encounter for other preprocedural examination
CPT/HCPCS: 80048; 80307; 82040; 83036; 85025; 86850; 86900; 86901; 87081; 93005

== ENCOUNTER 2024-02-16 02:23 | Day surgery (SDC) | payer MEDICARE, SELFPAY ==
--- NOTE | 2024-02-05 13:42 | PC.NURSE ---
Report to the Outpatient Waiting Room, entrance under the green pavilion located off [facility], at time _0600_ on date _02/16/24_. Planned Procedure Time: _0730_. PACK A SMALL OVERNIGHT BAG AND LEAVE IN THE CAR ALONG WITH YOUR WALKER Time changes happen often and if your time is changed the preop area will call you the afternoon before. - You and your visitor will be asked to self-screen and do not enter if you have any COVID symptoms. - A mask is optional within the hospital at this time. -VISITING HOURS 8AM-8PM Patients may have clear liquids (water, carbonated beverages, clear teas, apple juice) until 3 hours prior to surgery (0430 AM) with a maximum of 20 ounces. - No food from midnight until time of surgery Take the following medications with a SIP of water the morning of surgery: _LEVOTHYROXINE_ DO NOT STOP ANY OF YOUR OTHER PRESCRIPTION MEDICATIONS PRIOR TO SURGERY ?EXCEPT THE FOLLOWING Medications to discontinue per ANESTHESIA - _MULTIVITAMINS & SUPPLEMENTS 3 DAYS PRIOR TO SURGERY, Date to take last dose 02/12/24_ Please no make-up, nail uzbek, hairspray, perfume, deodorant, or body powder the day of surgery. No jewelry (including any body piercings) or valuables the day of surgery, leave them at home. Please take a shower or bath the night before, or the morning of, surgery with an antibacterial soap. Wear comfortable, loose fitting clothing. - Jewelry must be removed prior to entering the operating room. Rings and piercings that are not removed may be cut off. - The hospital will not accept responsibility for valuables. - Please leave all valuables, including medications, at home the day of surgery. If you are going home after surgery, a licensed dedicated local truck driver must drive you home. - NO public transportation without another adult if you receive anesthesia. - We recommend that an adult stay with you for 24 hours following discharge. - We also recommend that you do not drive, make important decision, drink alcoholic beverages, or take any drugs that were not prescribed by your health care provider for at least 24 hours after your discharge time. Follow any additional instructions given to you from your surgeon. If you or anyone in your household have experienced Covid symptoms in the past week, please notify your surgeon or the nurse liaison at the phone number below for possible testing. Instructions given to _PATIENT_and asked if any additional questions and then verbalized understanding. Patient advised to call surgeon office or pre surgery nurse liaison [phone] if any additional questions.
[2024-02-05 14:41] VITALS: BP 136/56; PULSE 74; RESP 16; TEMP 36.8; O2SAT 100; BMI 23.3
--- NOTE | 2024-02-15 17:13 | PM.IMHP ---
H&P: HPI History of Present Illness Date/Time: 02/15/24 17:13 Chief Complaint: severe right and left knee with severe patellofemoral arthritis in both knees Narrative: patient is a 68-year-old female with severe patellofemoral arthritis in both knees. She has used ibuprofen 800 mg cortisone shots she is not getting satisfactory relief. She has worked hard to lose weight and has lost over 55 lb in the last 3 years. Her knees limit her activities and she feels pain every day. The right 1 bothers her a little bit more so she would like to proceed with right total knee arthroplasty and would like a cortisone shot in the left knee at the same time. Last injections were in early November. [facility] Past Medical History Medical History (Updated 02/15/24 @ 17:19 by Emerson Tarango MD) Adenomatous colon polyp Degenerative arthritis of knee, bilateral Predominantly patellofemoral History of thyroid cancer 2006 Papillary thyroid cancer Right groin pain Surgical History Surgical History H/O partial thyroidectomy (2005) History of carpal tunnel release of both wrists 1992 History of delivery x2 1986 & 1997 History of dilatation and curettage x2 1996 & 2016 Status post complete thyroidectomy 2016 Family History Family History Other Bladder cancer CAD (coronary artery disease) Dementia Diabetes mellitus Heart disease Hypertension Lung cancer Parkinson disease Rectal cancer Skin cancer Social History Social History Smoking status: Never smoker Second hand tobacco smoke exposure: No Additional smoking assessment comments: PT DENIES ALL FORMS OF TOBACCO USE Alcohol intake: never Substance use: never Substance use type: does not use Do You Feel Safe in your Home?: Yes Lack of Transportation: No Lack of Food: Never True Current Housing: I Have Housing Concerned About Future Housing: No Difficulty Paying Gas/Electric Bills: No Difficulty Paying for Meds: No Currently Unemployed: No Education: Bachelor's Degree Difficulty w/ Childcare or Family Care: No Living arrangements: with family Occupation/Education: 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: No Meds Home Medications and Allergies Home Medications Medication Instructions Recorded Confirmed Type Lactobacillus 1 cap PO DAILY 01/02/21 02/05/24 History acidophilus-Bifidobac.animalis 2 billion cell capsule (One-A-Day Trubiotics) ascorbic acid 1,000 1,000 ea PO DAILY 01/02/21 02/05/24 History np-ucowqvpzumqz-yxwzdekd powder effervescent pack (Emergen-C) calcium polycarbophil 625 mg 2,500 mg PO BID 01/02/21 02/05/24 History tablet (FiberCon) ybfgjmltqhkm-otxoblte-emhiajo-folic 1 tablet PO DAILY 01/02/21 02/05/24 History acid 400 mcg-vit K1 20 mcg tablet (One-A-Day Women's 50 Plus) calcium carbonate 600 mg-vitamin 1 tablet PO BID 07/23/22 02/05/24 History D3 20 mcg (800 unit) chewable tablet (Caltrate 600 plus D) levothyroxine 137 mcg tablet 137 mcg PO DAILY #90 tabs 07/21/23 02/05/24 Rx Elderberry 3,400 mg DAILY 02/05/24 02/05/24 History Allergies Allergy/AdvReac Type Severity Reaction Status Date / Time Antihistamines - Alkylamine Allergy Severe DIFFICULTY Verified 02/10/24 09:42 BREATHING, INTERNAL QUIVERING Antihistamines - Ethanolamine Allergy Severe DIFFICULTY Verified 02/10/24 09:42 BREATHING, INTERNAL QUIVERING Antihistamines - Allergy Severe DIFFICULTY Verified 02/10/24 09:42 Ethylenediamine BREATHING, INTERNAL QUIVERING Antihistamines - Piperazine Allergy Severe DIFFICULTY Verified 02/10/24 09:42 BREATHING, INTERNAL QUIVERING Antihistamines - Piperidine Allergy Sev
[2024-02-16] VITALS (12 sets, daily range): BP systolic 116–144; BP diastolic 54–66; PULSE 80–95; RESP 12–18; TEMP 35.8–37; O2SAT 93–98
--- NOTE | ~2024-02-16 | XR_ITS ---
Right Knee Technique: Portable AP and crosstable lateral views Clinical History: Status post TKR Findings: Patient is status post total knee replacement. Orthopedic hardware alignment appears anatom ic. No hardware complication is evident. Subcutaneous emphysema and swelling is likely postoperative in nature. No acute osseous fracture is seen. Impression: Status post total knee replacement, without evidence of hardware complication. Reviewed, dictated and finalized at location . Impression: Status post total knee replacement, without evidence of hardware complication.
[2024-02-16] MEDS: ACETAMINOPHEN 500 MG TABLET 1000 MG PO ×3 (06:25→18:22)
[2024-02-16] MEDS: VANCOMYCIN 1,000 MG/NS 250 ML BAG 250 MG IVPB (06:37)
[2024-02-16] MEDS: TRANEXAMIC ACID 1,000MG/ISO100 1,000 MG/100 ML BAG 200 MG IVPB (06:38)
--- NOTE | 2024-02-16 06:54 | WPDANESEPPF ---
Anes - Initial Pre Proc Eval Procedure: Operation Date: 02/16/24 07:30 Proposed Procedures p Right Total Knee Arthroplasty, Cortisone Injection Left Knee - Emerson Tarango MD Date/Time: 02/16/24 06:54 Surgeon: Emerson Tarango MD Pre Op Diagnosis: OA bilat knees Patient Data Age: 68 Gender: F Height: 1.68 m Weight: 65.7 kg Last Vital Signs Temp 98.3 F 02/05/24 14:41 Pulse 74 02/05/24 14:41 Resp 16 02/05/24 14:41 BP 136/56 L 02/05/24 14:41 Pulse Ox 100 02/05/24 14:41 O2 Del Method Room Air 02/05/24 14:41 Allergies Allergy/AdvReac Type Severity Reaction Status Date / Time Antihistamines - Alkylamine Allergy Severe DIFFICULTY Verified 02/16/24 06:23 BREATHING, INTERNAL QUIVERING Antihistamines - Ethanolamine Allergy Severe DIFFICULTY Verified 02/16/24 06:23 BREATHING, INTERNAL QUIVERING Antihistamines - Allergy Severe DIFFICULTY Verified 02/16/24 06:23 Ethylenediamine BREATHING, INTERNAL QUIVERING Antihistamines - Piperazine Allergy Severe DIFFICULTY Verified 02/16/24 06:23 BREATHING, INTERNAL QUIVERING Antihistamines - Piperidine Allergy Severe DIFFICULTY Verified 02/16/24 06:23 BREATHING, INTERNAL QUIVERING Penicillins Allergy Mild HIVES Verified 02/16/24 06:23 amoxicillin Allergy Unknown Hives Verified 02/16/24 06:23 naproxen Allergy Unknown Mouth sores Verified 02/16/24 06:23 midazolam AdvReac Unknown PROLONGED Verified 02/16/24 06:23 VOMITING Home Medications Medication Instructions Recorded Confirmed Type Lactobacillus 1 cap PO DAILY 01/02/21 02/16/24 History acidophilus-Bifidobac.animalis 2 billion cell capsule (One-A-Day Trubiotics) ascorbic acid 1,000 1,000 ea PO DAILY 01/02/21 02/16/24 History ap-xynhuxutkyaf-puwvucpe powder effervescent pack (Emergen-C) calcium polycarbophil 625 mg 2,500 mg PO BID 01/02/21 02/16/24 History tablet (FiberCon) vqfyntfklaeb-ulflyhzf-wpziyrm-folic 1 tablet PO DAILY 01/02/21 02/16/24 History acid 400 mcg-vit K1 20 mcg tablet (One-A-Day Women's 50 Plus) calcium carbonate 600 mg-vitamin 1 tablet PO BID 07/23/22 02/16/24 History D3 20 mcg (800 unit) chewable tablet (Caltrate 600 plus D) levothyroxine 137 mcg tablet 137 mcg PO DAILY #90 tabs 07/21/23 02/16/24 Rx Elderberry 3,400 mg DAILY 02/05/24 02/16/24 History Patient hx anesthesia problems: none and post op nausea/vomiting (After versed in the past. ) Family hx anesthesia problems: none Results Review: All pre-operative results and documents have been reviewed as part of the pre-operative evaluation. [facility] Past Medical History Medical History Adenomatous colon polyp Degenerative arthritis of knee, bilateral Predominantly patellofemoral History of thyroid cancer 2005 Papillary thyroid cancer Right groin pain Surgical History Surgical History H/O partial thyroidectomy (2005) History of carpal tunnel release of both wrists 1992 History of delivery x2 1986 & 1997 History of dilatation and curettage x2 1996 & 2015 Status post complete thyroidectomy 2016 Family History Family History Other Bladder cancer CAD (coronary artery disease) Dementia Diabetes mellitus Heart disease Hypertension Lung cancer Parkinson disease Rectal cancer Skin cancer Social History Social History Smoking status: Never smoker Second hand tobacco smoke exposure: No Additional smoking assessment comments: PT DENIES ALL FORMS OF TOBACCO USE Alcohol intake: never Substance use: never Substance use type: does not use Do You Feel Safe in your Home?: Yes Lack of Transportation: No Lack of Food: Never
[2024-02-16] MEDS: LACTATED RINGERS 1,000 ML 30 ML IV CONT ×2 (06:55→11:18)
--- NOTE | 2024-02-16 07:11 | WPDHPUPDATE1 ---
History and Physical Update Update Date/Time: 02/16/24 07:11 History and Physical has been reviewed, including an updated exam of the patient. There are NO changes in the patient's condition. Risks, benefits, and alternatives have been discussed and questions answered. Patient agrees to proceed with procedure.
[2024-02-16] MEDS: ceFAZolin 2 GM/D5W 50 ML 2 GM/50 ML BAG IVPB (07:33)
[2024-02-16] MEDS: methylPREDNISolone ACETATE 80 MG/ML VIAL XX (07:42)
[2024-02-16] MEDS: LIDOCAINE HCL 1% LOCAL INJ 10 ML VIAL 4 ML INFILTRATE (07:43)
[2024-02-16] MEDS: ceFAZolin SODIUM 1 GM VIAL 3 GM (08:06)
[2024-02-16] MEDS: SODIUM CHLORIDE 0.9% IV 37.7 ML, MORPHINE SULFATE INJ (*CRX) 2 MG, ROPivacaine HCL 1% 2... INFILTRATE (08:51)
[2024-02-16] MEDS: GENTAMICIN BONE CEMENT REFOBACIN 1 EACH TOPICAL (09:57)
[2024-02-16] MEDS: TRANEXAMIC ACID 1,000 MG/10 ML AMPUL 1000 MG IV PUSH (10:07)
[2024-02-16] MEDS: ceFAZolin SODIUM 1 GM VIAL 2 GM IV PUSH (10:09)
[2024-02-16] MEDS: KETOROLAC 15 MG/ML VIAL (*BKC) IV PUSH ×3 (10:10→22:16)
--- NOTE | 2024-02-16 11:38 | W.PM.PROC2 ---
Procedure Note - Detailed Date of Procedure 02/16/24 Pre-op Diagnosis OA bilat knees Post-op Diagnosis Same (Predominantly advanced patellofemoral arthritis in both knees) Procedure Performed Right total knee arthroplasty, cortisone injection left knee Surgeon Emerson Tarango MD [employer] Lety Anesthesia General Description of Procedure Patient was brought to the operating and general anesthesia was administered. She received 2 g of Ancef weight based vancomycin preoperatively and 1 g of tranexamic acid. A time-out was completed and after ChloraPrep prep, 80 mg of Depo-Medrol and 4 cc 1% lidocaine were injected into the left knee without difficulty. The right knee was prepped draped usual fashion. The knee had full extension under anesthesia. The limb was exsanguinated tourniquet elevated to 250 mmHg. A 7 in longitudinal midline incision was used and a vastus medialis splitting approach utilized splitting the vastus medialis at the level of the superior pole of patella which is about 1 cm proximal to its distal edge of the VMO. Infrapatellar fat pad partially excised quadriceps synovectomy carried out. The patella was extremely thin. Thickest portion at the equator measured 16 mm and the center of the lateral facet at the equator only measured 10 mm and I felt this was too thin to safely resurface. A conservative lateral facetectomy was performed. The guide sue was inserted the femoral canal after aspiration of canal contents using the 5 degree valgus cutting bushing 9 mm of bone removed the distal femur. Next the tibial cut was made removing about 4 mm on the medial side about 7 from the lateral side perpendicular to the axis of the tibia. Meniscal remnants were excised the PCL was recessed. Flexion gap measured 8 mm medially and 12 mm laterally. The sizing guide was applied to the distal femur set at 5? of external rotation and posterior referencing pinholes were placed. The size 62.5 cutting block was applied and AP and chamfer cuts were made. The 62.5 however did overhang medial to lateral. With the 10 CR insert we had about 2 mm of opening with a Lynn elevator both medially and laterally. I elected to size and punched the tibial tray at this time. The 67 was going to overhang substantially both anteromedial and posterolateral and also it was too big anterior to posterior on the lateral tibial plateau. The 63 fit line to line and lateral tibial plateau and was appropriate and this was punched. We then trialed and found that gravity flexion was to 145 and we had appropriate stability in flexion the mm of opening medially and laterally at 90? and excellent anterior drawer stability. The knee lacked approximately 10? of extension. We applied the 60 size AP cutting block and removed the additional 2 mm of bone from the anterior surface. We had pinned the cutting block with a threaded pins as well. Additional 2 mm of bone removed the distal femur. The 60 cutting block was reapplied and the chamfer cuts revisited. The size 60 fit much better line to line distally. On trialing with a 10 there was still a barely positive bounce and extension. Is normal stability in flexion. I therefore elected to remove 1 more mm of bone from distal femur. Chamfer cuts revisited and a conservative posterior central capsular release was also performed and on read trialing the knee came out just to full extension with negative bounce. There is 2 mm medial opening 1 mm lateral opening. With the arthrotomy approximated with towel clips the still had 1 5? of flexion excellent anterior drawer stability in all positions. Patellar tracking excellent. Lug holes were drilled the distal femur. We had put the tourniquet down at 90 minute summary elevated at this time after exsanguination limb and the bone surfaces were prepared with the step drill the bony surfaces thoroughly irrigated and dried 2 batches of methylmethacrylate 1 the gentamicin powder were used medi
[2024-02-16] MEDS: ONDANSETRON INJ 4 MG/2 ML VIAL IV PUSH ×3 (12:10→19:50)
[2024-02-16] MEDS: SODIUM CHLORIDE 0.9% IV 1,000 ML 125 ML IV CONT (12:49)
[2024-02-16] MEDS: oxyCODONE HCL (*CRX) 5 MG TAB IR PO (12:49)
--- NOTE | 2024-02-16 12:54 | ADMGEN ---
This patient, Altagracia Chopra, was admitted to [facility] Surg Room 309-01. Patient/family oriented to hospital policies and general routines including ID bracelet, bed and alarms, visiting hours, pain management, procedures, bathroom and other care routines, personal items, smoking policy, room service/diet, and visiting hours. Information on how to activate the Rapid Response Team has been discussed. Patient/Family are encouraged to report perceived risks to care and to ask questions if they do not understand what they are told or what they should do.
[2024-02-16] MEDS: ceFAZolin 1 GM/NS 50 ML 1 GM/50 ML BAG IVPB ×2 (14:13→22:14)
--- NOTE | 2024-02-16 14:54 | PC.NURSE ---
Called Dr. Tarango to clarify cryocuff orders, per MD he does not want cryocuff ordered for patient. Cryocuff will remain off of patient.
[2024-02-16] MEDS: CALCIUM/VITAMIN D 500 MG/5 MCG (200 I.U.) TABLET PO (16:13)
[2024-02-16] MEDS: SENNA/DOCUSATE SODIUM TABLET 2 TAB PO (16:13)
[2024-02-17] MEDS: ACETAMINOPHEN 500 MG TABLET 1000 MG PO ×3 (00:37→12:17)
[2024-02-17 02:11] VITALS: BP 142/60; PULSE 89; RESP 14; TEMP 36.6; O2SAT 98
[2024-02-17 04:00] VITALS: BP 133/55; PULSE 92; RESP 16; TEMP 37; O2SAT 96
[2024-02-17] MEDS: LEVOTHYROXINE SODIUM 112 MCG, LEVOTHYROXINE SODIUM 25 MCG 137 MCG PO (06:26)
[2024-02-17] MEDS: ceFAZolin 1 GM/NS 50 ML 1 GM/50 ML BAG IVPB (06:27)
[2024-02-17 07:06] LABS: Basophils Percent Auto 0.2 % (0.2-1.2); Hematocrit 37.3 % (37.0-47.0); Hemoglobin 12.4 g/dL (12.0-15.0); Immature Granulocyte Absolute 0.06 K/mm3 (0.00-0.031); Immature Granulocyte Percent A 0.5 % (0-0.5); Lymphocytes Absolute Auto 0.96 K/mm3 (0.9-3.2); Lymphocytes Percent Auto 7.7 % (18.3-44.2); Mean Corpuscular HGB Conc 33.2 g/dl (32-36); Mean Corpuscular Hemoglobin 30.8 pg (26-34); Mean Corpuscular Volume 92.8 fl (80-100); Mean Platelet Volume 10.8 fl (7.4-10.4); Monocytes Absolute Auto 1.1 K/mm3 (0.1-0.6); Monocytes Percent Auto 8.8 % (2.6-8.5); Neutrophils Absolute Auto 10.3 K/mm3 (1.3-6.7); Neutrophils Percent Auto 82.8 % (45.5-73.1); Platelet Count Result 302 k/mm3 (150-375); Red Blood Count 4.02 M/mm3 (4.2-5.4); Red Cell Distribution Width 13.2 % (11.5-14.5); White Blood Count 12.4 K/mm3 (4.5-10.0)
[2024-02-17 07:27] LABS: Anion Gap 5 mmol/L (4-12); Blood Urea Nitrogen 11 mg/dL (7-17); Calcium 9.4 mg/dL (8.4-10.2); Carbon Dioxide 29 mmol/L (22-30); Chloride 103 mmol/L (98-107); Estimated CRCL calculation 64 ml/min; Estimated Glomerular Filt Rate > 60; Glucose 137 mg/dL (65-110); Potassium 4.2 mmol/L (3.4-5.0); Sodium 137 mmol/L (137-145)
[2024-02-17 08:00] VITALS: BP 136/65; PULSE 93; RESP 18; TEMP 36.7; O2SAT 96
[2024-02-17] MEDS: CALCIUM/VITAMIN D 500 MG/5 MCG (200 I.U.) TABLET PO (08:59)
[2024-02-17] MEDS: SENNA/DOCUSATE SODIUM TABLET 2 TAB PO (08:59)
[2024-02-17] MEDS: polyethylene glycoL 3350 17 GM POWD.PACK PO (08:59)
[2024-02-17] MEDS: CELECOXIB 200 MG CAPSULE PO (08:59)
[2024-02-17] MEDS: THERAPEUTIC MULTIVITAMINS/MINERALS TAB (*BKC) 1 TABLET PO (08:59)
[2024-02-17] MEDS: APIXABAN 2.5 MG TABLET PO (09:00)
--- NOTE | 2024-02-17 10:35 | PM.DS ---
DS: Admitting Diagnosis Discharge Date 02/17/2024 Admitting Diagnosis Bilateral knee advanced patellofemoral arthritis DS: Discharge Diagnosis Discharge Diagnosis (1) Primary osteoarthritis of knees, bilateral: Code(s): M17.0 - Bilateral primary osteoarthritis of knee Status: Acute (2) Total knee replacement status: Qualifiers: Laterality: right Qualified Code(s): Z96.651 - Presence of right artificial knee joint Code(s): Z96.659 - Presence of unspecified artificial knee joint Status: Acute DS: Summary Hospital Course Hospital Course: Patient was admitted for right total knee arthroplasty performed on 02/26/2024 and at the same time she received a course of the. She had severe nausea yesterday afternoon after surgery but since that results she has done very well. The discomfort. She is demonstrated excellent range of motion is able do a straight leg raise and walk she. Feels comfortable going home today. She has minimal swelling today intact motor and. Sensory in the foot. Time Spent with Patient Time attestation: Total time spent providing and/or coordinating discharge services: DS: Data Data Completed and Pending Labs on day of discharge: Labs from last 24 hours 02/17/24 06:12 WBC 12.4 H RBC 4.02 L Hgb 12.4 Hct 37.3 MCV 92.8 MCH 30.8 MCHC 33.2 RDW 13.2 Plt Count 302 MPV 10.8 H Immature Gran % (Auto) 0.5 Neut % (Auto) 82.8 H Lymph % (Auto) 7.7 L [place] % (Auto) 8.8 H Eos % (Auto) 0.0 Baso % (Auto) 0.2 Lymph # (Auto) 0.96 [place] # (Auto) 1.1 H Eos # (Auto) 0.0 Baso # (Auto) 0.0 Abs Immat Gran (auto) 0.06 H Absolute Neuts (auto) 10.3 H Absolute Nucleated RBC 0.000 Nucleated RBC % 0.0 Sodium 137 Potassium 4.2 Chloride 103 Carbon Dioxide 29 Anion Gap 5 BUN 11 D Creatinine 0.70 Estim Creat Clear Calc 64 Estimated GFR > 60 Glucose 137 H Calcium 9.4 Discharge Plan Discharge Patient Disposition: Home, Self-Care Discharge Instructions: AISHWARYA SALAZAR M.D [facility], [address] [address] POST-OPERATIVE DISCHARGE INSTRUCTIONS TOTAL KNEE ARTHROPLASTY 1. When resting, do not rest in the chair.When resting, lie on your back, with back flat on the couch or bed, with leg elevated above heart to minimize swelling. You may put a pillow under your head. . Significant swelling could indicate a blood clot and if this occurs call the office (or go to the ER) to have a venous ultrasound. Therefore, do not rest in a chair. 2. At least five times a day spend several minutes stretching your knee into flexion while sitting in the chair and also stretching your knee out straight The abilities to bend your knee fulling and straighten your knee fully are two most important knee functions to focus on during your recovery. 3. It is ok to sit in chair to eat, use the toilet and receive a guest and to do your stretching exercises, but, sitting in a chair will cause your leg to swell. Therefore, avoid additional time sitting in the chair. and don't rest in the chair. 4. Wound Care: Nursing will give you an additional Mepilex dressing at the time of discharge. Patient to remove the dressing and apply a new Mepilex dressing at home 7 days after surgery and leave the dressing on until seen in office. It is normal to see a small amount of blood on the silver pad of the Mepilex dressing. Its designed to hold small spots of blood. However, if the blood reaches the edge of the pad up to the boarder of the clear membrane that surrounds the pad, the pad is saturated and the Mepilex dressing should be removed and a new Mepilex dressing should be applied. 5. May shower with a Mepilex dressing in place.The water will run off the dressing. 6. Unless you are told otherwise, you may put full weight on your operated leg. Use a walker for balance and practice walking as normally as you c
[2024-02-17] MEDS: CEFDINIR 300 MG CAPSULE PO (12:17)
--- NOTE | 2024-02-17 12:20 | P.PNAN_ITS ---
Anes - Prog Note Post-Op Date/Time: 02/17/24 12:20 Cardiovascular status: normal Respiratory status: normal Airway patency: baseline Mental status: baseline Post-Op hydration status: normal Vital Signs: Last Vital Signs Temp 36.7 C 02/17/24 08:00 Pulse 93 02/17/24 08:00 Resp 18 02/17/24 08:00 BP 136/65 02/17/24 08:00 Pulse Ox 96 02/17/24 08:00 O2 Del Method Room Air 02/17/24 08:00 O2 Flow Rate 6 02/16/24 11:18 Pain Score (VAS): 02/10 I/O: Intake & Output 02/16/24 02/17/24 02/17/24 23:59 07:59 15:59 Intake Total 300 490 Balance 300 490 Laboratory Tests 02/17/24 06:12 02/17/24 06:12 02/17/24 06:12 WBC 12.4 H RBC 4.02 L Hgb 12.4 Hct 37.3 MCV 92.8 MCH 30.8 MCHC 33.2 RDW 13.2 Plt Count 302 MPV 10.8 H Immature Gran % (Auto) 0.5 Neut % (Auto) 82.8 H Lymph % (Auto) 7.7 L [place] % (Auto) 8.8 H Eos % (Auto) 0.0 Baso % (Auto) 0.2 Lymph # (Auto) 0.96 [place] # (Auto) 1.1 H Eos # (Auto) 0.0 Baso # (Auto) 0.0 Abs Immat Gran (auto) 0.06 H Absolute Neuts (auto) 10.3 H Absolute Nucleated RBC 0.000 Nucleated RBC % 0.0 Sodium 137 Potassium 4.2 Chloride 103 Carbon Dioxide 29 Anion Gap 5 BUN 11 D Creatinine 0.70 Estim Creat Clear Calc 64 Estimated GFR > 60 Glucose 137 H Calcium 9.4 Post-procedural complaints: nausea and vomiting Patient Feedback: Patient satisfied with anesthetic care.
== END 2024-02-17 13:15 | disposition home or self-care (01) ==
LOC: ANHSURGERY 06:36 → ANH3MEDSUR 12:33
PROVIDERS: PCP Family Medicine Adolescent Medicine; Visit Provider Orthopaedic Surgery
PROC: (CPT 27447; principal; 2024-02-16 07:30)
DX: M17.0 Bilateral primary osteoarthritis of knee (principal); E89.0 Postprocedural hypothyroidism; Z85.850 Personal history of malignant neoplasm of thyroid
CPT/HCPCS: 27447; 20610; 36415; 73560; 80048; 85025; 97110; 97116; 97161; 97165; 97530; 97535; A9270; C1713; C1776; J0171; J0690; J1010; J1100; J1170; J1885; J2270; J2405; J2704; J2795; J3010; J3370; J7030; J7120

== ENCOUNTER 2024-03-18 10:00 | Outpatient (RCR) | payer MEDICARE, SELFPAY ==
--- NOTE | 2024-02-20 11:44 | OPREHPOC ---
Outpatient Therapy Plan of Care This is a Multidisciplinary Plan of Care that may contain components documented by all disciplines (PT, OT, and ST.) PT Problem 1 PT Problem #1 Knowledge Deficit PT Goal 1 Goal *indep with HEP *progress to cane as dr protocol Target Visit 10 PT Problem 2 PT Problem #2 Pain PT Goal 1 Goal 1* pain 2/10 at worst rating 2* LE functional scale self rating of 58% limitation Target Visit 10 PT Problem 3 PT Problem #3 Impaired Range of Motion PT Goal 1 Goal *increase R knee active extension to 0' in sitting , to improve gait and mobility skills Target Visit 6 PT Problem 4 PT Problem #4 Impaired Functional Mobil PT Goal 1 Goal 1* pt up/down 12 steps with one hand railing and alternating step pattern 2* 2 minute test walking distance of 525' 3* progress to cane per protocol PT Problem 5 PT Problem #5 Edema PT Goal 1 Goal decrease edema over R knee, to improve ROM and decrease pain: circumferential measurements of knee 1* superior to patella 44 cm 2* mid patella 40 cm 3* inferior patella 36 cm
--- NOTE | 2024-02-20 11:45 | PTOPEVAL1 ---
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 Her LE functional scale self rating is 85% limitation in activity level. History includes L knee pain and she had an injection into her L knee at the time of surgery. With the evaluation: her R knee active ROM in sitting is (-10') to 120'; 4/5 strength of knee-- able to perform 20 reps of mat exercises; gait is with a wheeled walker, 2 minute test distance of 450' and stairs with 1 hand railing; there is edema and bruising over her R knee. Skilled PT services are indicated for modalities to decrease pain; therapeutic exercises and education for HEP and progression to lesser assistive device as per protocol. Plan of Care Interventions Electrical Stimulation,Intermittent Compression, Manual Therapy,Neuro Re-education,Patient/ Caregiver Education,Therapeutic Activities, Therapeutic Exercise,Other Other Interventions taping PT Services Indicated Yes Treatment Frequency and 2x/wk for 8 visits Duration
--- NOTE | 2024-02-23 08:47 | PCPTNOTE ---
LATE ENTRY 02-20-24: I spoke with Dr Tarango on the phone: discussed pt and he verbally gave me consent to use an intermittent compression pump for her TKR edema.
--- NOTE | 2024-03-18 10:58 | PTOPDC ---
Assessment and note entered by Anna Ferris, PT Discharge Information Assessment Status Discharge Diagnosis s/p R TKR Onset 02-16-24 Subjective Information walked outside in the yard without the cane; doing OK on stairs, foot over foot; went shopping and been going out more; have been doing the exercises at home. Reported Pain Level Pain Score Self Report Additional Pain Score Comments knee is tight and stiff this morning; pain range in the past week 0-2/10; have popping in posterior-lateral hamstring area; Assessment PT Clinical Summary Altagracia has received 8 PT sessions. Compared to the initial evaluation: pain is decreased to 0-2/10; has some popping in medial and lateral hamstring at popliteal crease; 2 minute walking test distance from 450 to 565'; alternating step pattern without use of hand rail for 12 steps; is using the cane PRN for distances only; increase strength and activity level, self assessment functional scale of 85% to 46% limitation in activity level; education completed for HEP and gait. R knee active ROM in sitting: (-5') to 120'; The goals were achieved, except knee extension 0'. Discharge PT services. She is to continue with her HEP and increase her activity level as tolerated. Plan of Care PT Services Indicated No
== END 2024-03-19 11:56 | disposition home or self-care (01) ==
LOC: ANHPT 10:00
PROVIDERS: PCP Family Medicine Adolescent Medicine; Visit Provider Orthopaedic Surgery
DX: Z47.1 Aftercare following joint replacement surgery (principal); M17.11 Unilateral primary osteoarthritis, right knee; Z96.651 Presence of right artificial knee joint
CPT/HCPCS: 97016; 97110; 97116; 97140; 97161; 97530

== ENCOUNTER 2024-07-06 15:35 | Outpatient (CLI) | payer MEDICARE, SELFPAY ==
[2024-07-06 16:28] LABS: CRP < 0.5 mg/dL (<1.0)
[2024-07-06 16:55] LABS: Thyroid Stimulating Hormone < 0.015 uIU/mL (0.465-4.680)
[2024-07-06 17:29] LABS: Free T4 Free Thyroxine 2.08 ng/mL (0.78-2.19)
[2024-07-09 11:09] LABS: Thyroglobulin <0.1 ng/mL; Thyroglobulin Antibodies <1 IU/mL (< or = 1)
== END 2024-07-06 15:36 | disposition home or self-care (01) ==
LOC: ANHLAB 15:44
PROVIDERS: PCP Family Medicine Adolescent Medicine; Visit Provider Family Medicine Adolescent Medicine
DX: M25.50 Pain in unspecified joint (principal); E89.0 Postprocedural hypothyroidism; Z85.850 Personal history of malignant neoplasm of thyroid
CPT/HCPCS: 36415; 84432; 84439; 84443; 86140; 86800

== ENCOUNTER 2024-10-07 00:50 | Day surgery (SDC) | payer MEDICARE, SELFPAY ==
[2024-09-17 12:26] VITALS: BMI 23.8
--- NOTE | 2024-10-06 16:13 | P.PNAN_ITS ---
Anes - Eval Pre Procedure Procedure: Operation Date: 10/07/24 07:30 Proposed Procedures p Screening Colonoscopy - Ronn Tolbert DO Date/Time: 10/06/24 16:13 Pre Op Diagnosis: Neoplasm screening Patient Data Age: 69 Gender: F Height: 1.68 m Weight: 67 kg Allergies Allergy/AdvReac Type Severity Reaction Status Date / Time Antihistamines - Alkylamine Allergy Severe DIFFICULTY Verified 09/17/24 12:20 BREATHING, INTERNAL QUIVERING Antihistamines - Ethanolamine Allergy Severe DIFFICULTY Verified 09/17/24 12:20 BREATHING, INTERNAL QUIVERING Antihistamines - Allergy Severe DIFFICULTY Verified 09/17/24 12:20 Ethylenediamine BREATHING, INTERNAL QUIVERING Antihistamines - Piperazine Allergy Severe DIFFICULTY Verified 09/17/24 12:20 BREATHING, INTERNAL QUIVERING Antihistamines - Piperidine Allergy Severe DIFFICULTY Verified 09/17/24 12:20 BREATHING, INTERNAL QUIVERING Penicillins Allergy Mild HIVES Verified 09/17/24 12:20 amoxicillin Allergy Unknown Hives Verified 09/17/24 12:20 naproxen Allergy Unknown Mouth sores Verified 09/17/24 12:20 midazolam AdvReac Unknown PROLONGED Verified 09/17/24 12:20 VOMITING Home Medications Medication Instructions Recorded Confirmed Type Lactobacillus 1 cap PO DAILY 01/02/21 09/17/24 History acidophilus-Bifidobac.animalis 2 billion cell capsule (One-A-Day Trubiotics) dqclnbuixbne-kpmpealj-gdvapmg-folic 1 tablet PO DAILY 01/02/21 09/17/24 History acid 400 mcg-vit K1 20 mcg tablet (One-A-Day Women's 50 Plus) calcium 600 mg (as carbonate)-vit 1 tablet PO BID 07/23/22 09/17/24 History D3 20 mcg (800 unit) chewable tablet (Caltrate plus D) levothyroxine 137 mcg tablet 137 mcg PO DAILY #90 tabs 03/03/24 09/17/24 Rx ascorbic acid 1,000 1 ea PO DAILY 03/31/24 09/17/24 History wi-hhacknhtafdc-feymmkht powder effervescent pack (Emergen-C) calcium polycarbophil 625 mg 2,500 mg PO DAILY 03/31/24 09/17/24 History tablet (FiberCon) elderberry fruit 350 mg capsule 350 mg PO DAILY 03/31/24 09/17/24 History alendronate 70 mg tablet 70 mg PO WEEKLY 09/17/24 09/17/24 History ibuprofen 200 mg tablet 400 mg PO Q6H PRN Pain 09/17/24 09/17/24 History Patient hx anesthesia problems: post op nausea/vomiting Family hx anesthesia problems: none Results Review: All pre-operative results and documents have been reviewed as part of the pre- operative evaluation. [facility] Past Medical History Medical History Adenomatous colon polyp Degenerative arthritis of knee, bilateral Predominantly patellofemoral History of thyroid cancer 2006 Papillary thyroid cancer Right groin pain Surgical History Surgical History H/O partial thyroidectomy (2005) History of carpal tunnel release of both wrists 1992 History of delivery x2 1986 & 1997 History of dilatation and curettage x2 1996 & 2005 History of total right knee replacement (02/2024) Status post complete thyroidectomy 2006 Family History Family History Other Bladder cancer CAD (coronary artery disease) Dementia Diabetes mellitus Heart disease Hypertension Lung cancer Parkinson disease Rectal cancer Skin cancer Social History Social History Smoking status: Never smoker Second hand tobacco smoke exposure: No Additional smoking assessment comments: PT DENIES ALL FORMS OF TOBACCO USE Alcohol intake: never Substance use: never Substance use type: does not use Do You Feel Safe in your Home?: Yes Lack of Transportation: No Lack of Food: Never True Current Housing: I Have Housing Concerned About Future Housing: No Difficulty Paying Gas/Electric Bills: No Difficulty Paying for Meds: No Currently Unemployed: No Education: Bachelor's Degree Difficulty w/ Childcare or Family Care: No Living arrangements: with family Occupation/Education: 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
[2024-10-07 06:27] VITALS: BP 138/75; PULSE 82; RESP 6; TEMP 36.2; O2SAT 100
[2024-10-07] MEDS: LACTATED RINGERS 1,000 ML 150 ML IV CONT (06:36)
--- NOTE | 2024-10-07 06:37 | P.PNAN_ITS ---
Anes - Eval Final PreProcedure Day of Procedure 10/07/24 06:37 Patient weight: normal Heart: regular rate and rhythm Lungs: clear to auscultation Airway: Mallampati scale class II Neurological: alert and oriented Last oral intake: >/= 8 hours ASA classification: II Emergent: no Anesthetic plan: proceed Anesthesia type and monitoring: general GIVS and standard monitoring Results Review: All pre-operative results and documents have been reviewed as part of the pre- operative evaluation. Informed Consent: The patient's anesthetic plan and its attendant risks and benefits were discussed with the patient/family/POA. Questions were solicited and answers provided to the satisfaction of the patient/family/POA.
--- NOTE | 2024-10-07 07:28 | PM.IMHP ---
H&P: HPI History of Present Illness Date/Time: 10/07/24 07:28 Chief Complaint: Family history of colon cancer Narrative: this is a 69 year woman who presents for colonoscopy. Her last colonoscopy was 3 years ago. Polyps were found at that time. She has a family history of rectal cancer in her brother. She denies any hematochezia melena. Review of Systems Review of Systems: All systems reviewed & are unremarkable except as noted in HPI and below Constitutional: Constitutional: Denies chills, Denies fever(s), Denies headache(s) and Denies weight loss Eyes: Eyes: Denies change in vision ENT: Denies dizziness, Denies headache(s), Denies neck mass and Denies throat swelling Cardiovascular: Cardiovascular: Denies chest pain, Denies lightheadedness and Denies dyspnea Respiratory: Respiratory: Denies cough, Denies dyspnea and Denies wheezing Gastrointestinal: Gastrointestinal: Denies abdominal pain, Denies change in bowel habits, Denies nausea and Denies vomiting Genitourinary: Genitourinary: Denies hematuria and Denies dysuria Musculoskeletal: Musculoskeletal: Reports as per HPI Integumentary/Breasts: Skin/Breast: Reports as per HPI Neurologic: Denies dizziness and Denies headache(s) Allergic/Immunologic: Allergic/Immunologic: Denies throat swelling and Denies wheezing [facility] Past Medical History Medical History Adenomatous colon polyp Degenerative arthritis of knee, bilateral Predominantly patellofemoral History of thyroid cancer 2006 Papillary thyroid cancer Right groin pain Surgical History Surgical History H/O partial thyroidectomy (2005) History of carpal tunnel release of both wrists 1992 History of delivery x2 1987 & 1997 History of dilatation and curettage x2 1996 & 2005 History of total right knee replacement (02/2024) Status post complete thyroidectomy 2006 Family History Family History Other Bladder cancer CAD (coronary artery disease) Dementia Diabetes mellitus Heart disease Hypertension Lung cancer Parkinson disease Rectal cancer Skin cancer Social History Social History Smoking status: Never smoker Second hand tobacco smoke exposure: No Additional smoking assessment comments: PT DENIES ALL FORMS OF TOBACCO USE Alcohol intake: never Substance use: never Substance use type: does not use Do You Feel Safe in your Home?: Yes Lack of Transportation: No Lack of Food: Never True Current Housing: I Have Housing Concerned About Future Housing: No Difficulty Paying Gas/Electric Bills: No Difficulty Paying for Meds: No Currently Unemployed: No Education: Bachelor's Degree Difficulty w/ Childcare or Family Care: No Living arrangements: with family Occupation/Education: 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: No Meds Home Medications and Allergies Home Medications Medication Instructions Recorded Confirmed Type Lactobacillus 1 cap PO DAILY 01/02/21 10/07/24 History acidophilus-Bifidobac.animalis 2 billion cell capsule (One-A-Day Trubiotics) mmbbgbrwouig-dpmdjxdt-qhsabku-folic 1 tablet PO DAILY 01/02/21 10/07/24 History acid 400 mcg-vit K1 20 mcg tablet (One-A-Day Women's 50 Plus) calcium 600 mg (as carbonate)-vit 1 tablet PO BID 07/23/22 10/07/24 History D3 20 mcg (800 unit) chewable tablet (Caltrate plus D) levothyroxine 137 mcg tablet 137 mcg PO DAILY #90 tabs 03/03/24 10/07/24 Rx ascorbic acid 1,000 1 ea PO DAILY 03/31/24 10/07/24 History yf-llyftihmbflr-lrjietnu powder effervescent pack (Emergen-C) calcium polycarbophil 625 mg 2,500 mg PO DAILY 03/31/24 10/07/24 History tablet (FiberCon) elderberry fruit 350 mg capsule 350 mg PO DAILY 03/31/24 10/07/24 History alendronate 70 mg tablet 70 mg PO WEEKLY 09/17/24 10/07/24 History ibuprofen 200 mg tablet 400 mg PO Q6H PRN Pain 09/17/24 10/07/24 History Allergies Allergy/AdvReac Type Severity Reaction Status Date / Time Antihistamines - Alkylamine Allergy Severe DIFFICULTY Verified 10/07/24 06:24 BREATHING, INTERNAL QUIVERING Antihistamines - Ethanolamine Allergy Severe DIFFICULTY Verified 10/07/24 06:24 BREATHING, INTERNAL QUIVERING Antihistamines - Allergy Severe DIFFICULTY Verified 10/07/24 06:24 Ethylenediamine BREATHING, INTERNAL QUIVERING Antihistamines - Piperazine Allergy Severe DIFFICULTY Verified 10/07/24 06:24 BREATHING, INTERNAL QUIVERING Antihistamines - Piperidine Allergy Severe DIFFICULTY Verified 10/07/24 06:24 BREATHING, INTERNAL QUIVERING Penicillins Allergy Mild HIVES Verified 10/07/24 06:24 amoxicillin Allergy Unknown Hives Verified 10/07/24 06:24 naproxen Allergy Unknown Mouth sores Verified 10/07/24 06:24 midazolam AdvReac Unknown PROLONGED Verified 10/07/24 06:24 VOMITING Vital Signs Vital Signs - 24 hr 10/07/24 06:27 Temperature 97.2 F L Pulse Rate 82 Respiratory Rate 6 L Blood Pressure 138/75 Pulse Oximetry 100 Oxygen Delivery Room Air Exam Const: General: no acute distress and alert Orientation/consciousness: patient oriented x3 HENMT: Head: normocephalic and atraumatic Ears: hearing grossly normal bilaterally Face/Nose/Sinus: Normal nares present Mouth: Yes Normal oral and palatal mucosa present Eyes: Periorbital: periorbital findings normal Sclera: sclerae normal EOM: EOMs intact bilaterally Neck: Neck: normal visual inspection, no lymphadenopathy and trachea midline Chest: Chest palpation & inspection: normal inspection of the chest Resp: Effort & Inspection: normal respiratory effort Auscultation: clear to auscultation bilaterally Cardio: Jugular venous distension: no JVD Rate: regular rate Rhythm: regular rhythm Heart sounds: S1 normal heart sound present and S2 normal heart sound present Peripheral pulses: Peripheral pulses 2+ throughout GI: Inspection: normal to inspection GI Palp: Yes Soft to palpation, No Tenderness to palpation present (GI), No Guarding due to palpation present (GI) and No Rebound tenderness present Percussion: Yes normal to percussion Auscultation: normal bowel sounds : General: Yes no CVA tenderness Back/Spine/Pelvis: Back: no CVA tenderness Neuro: General: patient oriented x3, no focal motor deficits and CN's II-XI intact bilaterally Cognition (Neuro): normal cognition Speech: normal speech Motor exam (neuro): 5/5 motor strength present throughout Extrem: General: capillary refill normal and no clubbing, cyanosis or edema Assessment and Plan Assessment and plan (1) Family history of rectal cancer: Code(s): Z80.0 - Family history of malignant neoplasm of digestive organs Status: Acute Assessment and Plan: I have recommended colonoscopy. I have discussed the procedure, risks, benefits, and alternatives. Questions were answered. Patient is agreeable to proceed.
[2024-10-07 07:52] VITALS: BP 107/64; PULSE 68; RESP 20; O2SAT 98
[2024-10-07 08:02] VITALS: BP 141/67; PULSE 66; RESP 19; O2SAT 100
[2024-10-07 08:12] VITALS: BP 123/56; PULSE 70; RESP 17; O2SAT 100
== END 2024-10-07 08:27 | disposition home or self-care (01) ==
PROVIDERS: PCP Family Medicine Adolescent Medicine; Visit Provider Surgery
PROC: 0DJD8ZZ Inspection of Lower Intestinal Tract, Via Natural or Artificial Opening Endoscopic (ICD-10-PCS; CPT 45378; principal; 2024-10-07 07:30)
DX: Z12.11 Encounter for screening for malignant neoplasm of colon (principal); K62.1 Rectal polyp; K57.30 Diverticulosis of large intestine without perforation or abscess without bleeding; Z80.0 Family history of malignant neoplasm of digestive organs; E89.0 Postprocedural hypothyroidism
CPT/HCPCS: 45380; 88305; J2003; J2704; J7120

== ENCOUNTER 2024-10-18 15:44 | Outpatient (CLI) | payer MEDICARE, SELFPAY ==
--- NOTE | ~2024-10-18 | MM_ITS ---
EXAMINATION: MM screening jo-ann BI w apple HISTORY: Screening TECHNIQUE: Craniocaudal and mediolateral oblique 3-D tomosynthesis images were obtained and synthetic 2-D images were generated. CAD analysis was submitted and interpreted. COMPARISON: Comparison to multiple prior studies sequentially, with oldest reviewed study dated 05/2018. BREAST PARENCHYMAL COMPOSITION: Dense: The breasts are extremely dense, which lowers the sensitivity of mammography. FINDINGS: There is no evidence of suspicious mass, calcification, or architectural distortion to sugg est malignancy in either breast. There has been no suspicious interval change. IMPRESSION: 1. No mammographic evidence of malignancy. 2. Recommend routine screening mammography in one year. BI-RADS Category 1: Negative Reviewed, dictated and finalized at location B. AM TRIMMER
== END 2024-10-18 15:45 | disposition home or self-care (01) ==
LOC: ANHIMG 15:47
PROVIDERS: PCP Family Medicine Adolescent Medicine; Visit Provider Obstetrics & Gynecology
DX: Z12.31 Encounter for screening mammogram for malignant neoplasm of breast (principal)
CPT/HCPCS: 77063; 77067

== ENCOUNTER 2025-08-29 10:15 | Outpatient (CLI) | payer MEDICARE, SELFPAY ==
[2025-08-29 10:34] LABS: Hematocrit 43.7 % (37.0-47.0); Hemoglobin 14.3 g/dL (12.0-15.0); Mean Corpuscular HGB Conc 32.7 g/dl (32-36); Mean Corpuscular Hemoglobin 30.3 pg (26-34); Mean Corpuscular Volume 92.6 fl (80-100); Platelet Count Result 337 k/mm3 (150-375); Red Blood Count 4.72 M/mm3 (4.2-5.4); White Blood Count 5.1 K/mm3 (4.5-10.0)
[2025-08-29 10:53] LABS: Alanine Aminotransferase 18 U/L (6-35); Albumin Level 4.5 g/dL (3.5-5.1); Alkaline Phosphatase 70 U/L (38-126); Anion Gap 5 mmol/L (4-12); Aspartate Amino Transferase 35 U/L (14-36); Bilirubin,Total 0.8 mg/dL (0.2-1.3); Blood Urea Nitrogen 14 mg/dL (7-17); Calcium 9.3 mg/dL (8.4-10.2); Carbon Dioxide 31 mmol/L (22-30); Chloride 98 mmol/L (98-107); Estimated Glomerular Filt Rate > 60; Glucose 93 mg/dL (65-110); Potassium 4.2 mmol/L (3.4-5.0); Sodium 134 mmol/L (137-145); Total Protein 7.9 g/dL (6.3-8.2)
--- OUTSIDE RECORDS SUMMARY | 2025-08-29 11:19 | XMS_ITS | Clinical Summary ---
Author Organization [facility] Address [address], [address] [address] Phone Care Team Providers Care Yarn Carrier Name Role Phone Kari Cota MD Unavailable [phone] Eldon Barakat MD Primary Care Provider + Social History Tobacco Use Types Packs/Day Years Used Date Smoking Tobacco: Never Assessed Comments Unknown Sex and Gender Information Value Date Recorded Sex Assigned at Not on file Legal Sex Female 9:10 PM CDT Gender Identity Not on file Sexual Orientation Not on file Plan of Treatment Health Maintenance Due Date Last Done Comments Hepatitis C Virus (HCV) Screening 1955 TdaP Immunization 1955 Cologuard 2002 Immunochemical Fecal Occult Blood 2002 Pneumococcal Immunization (5 0+ years) (1 of 1 - PCV) 2007 Zoster Immunization (1 of 2) 2007 Colonoscopy 10/19/2021 10/19/2018 Colorectal Cancer Screening 10/19/2021 Influenza Immunization (#1) 2025 SARS-COV-2 Immunization ( season) 2025 Respiratory Syncytial Virus (RSV) Immunization (Adult) (1 - 1-dose 75+ series) 2032 Hepatitis B Immunization Aged Out No longer eligible based on patient's age to complete this topic Human Papillomavirus (HPV) Immunization Aged Out No longer eligible b ased on patient's age to complete this topic Meningococcal Immunization (ACWY) Aged Out No longer eligible based on patient's age to complete this topic Rotavirus Immunization Aged Out No lo nger eligible based on patient's age to complete this topic Procedures Procedure Name Priority Date/Time Associated Diagnosis Comments COLONOSCOPY Routine 10/19/2018 from Last 3 Months or Most Recently Relevant to Health Maintenance Results * COLONOSCOPY (10/19/2018) Marlo Allen DO PROCEDURE/MINOR SURGICAL ORDERA BLES Final Result from Last 3 Months or Most Recently Relevant to Health Maintenance Insurance [facility] Care Teams Yarn Carrier Relationship Specialty Start Date End Date Eldon Barakat MD [address] [place] [address] PCP - General Family Medicine 10/23/18 Kari Cota MD [address] [facility] [place] [place] [address] Family Medicine 08/13/18
[2025-08-29 11:29] LABS: Thyroid Stimulating Hormone < 0.015 uIU/mL (0.465-4.680)
[2025-08-29 12:04] LABS: Free T4 Free Thyroxine 2.29 ng/dL (0.78-2.19)
== END 2025-08-29 10:16 | disposition home or self-care (01) ==
PROVIDERS: PCP Family Medicine Adolescent Medicine; Visit Provider Family Medicine Adolescent Medicine
DX: E89.0 Postprocedural hypothyroidism (principal); Z85.850 Personal history of malignant neoplasm of thyroid
CPT/HCPCS: 36415; 80053; 84439; 84443; 85027; 86800

== ENCOUNTER 2025-10-20 14:15 | Outpatient (CLI) | payer MEDICARE, SELFPAY ==
--- NOTE | ~2025-10-20 | DEXA_ITS ---
CORRECTED REPORT removed smoker from clinical information, DEXA report rebuilt [facility] 10/21/2025 This report was recreated on 10/21/2025. Original report was signed by Reported by: ANNE-MARIE on 10/20/2025 5:26:00 PM. Bone Density Report Name: VELIA ESPARZA Age: 70 Sex: Female Ethnicity: White Date of : 1955 Indication: screening for osteoporosis; height loss; cancer; Referring Provider: DANIEL CHAMBERS Study: Bone densitometry was performed. Exam Date: October 20, 2025 Accession number: [id number] Bone Density: Region BMD T-score Z-score Classification AP Spine(L1-L4) 0.878 -1.5 0.4 Osteopenia Femoral Neck (Left) 0.592 -2.3 -0.6 Osteopenia Total Hip (Left) 0.804 -1.1 0.3 Osteopenia Femoral Neck (Right) 0.624 -2.0 -0.3 Osteopenia Total Hip (Right) 0.802 -1.2 0.2 Osteopenia Femoral Neck Mean 0.608 -2.2 -0.5 Osteopenia Total Hip Mean 0.803 -1.1 0.3 Osteopenia World Health Organization criteria for BMD impression classify patients as: Normal (T-score at or above -1.0), Osteopenia (T-score between -1.0 and -2.5), or Osteoporosis (T-score at or below -2.5). 10-year Fracture Risk: FRAX not reported because: Premenopausal woman Treated for osteoporosis Clinical Information Provided by Patient: Is being treated for osteoporosis Has used the following medications: Fosamax (i.e. alendronate), Vitamin D, Calcium, multivitamin Has the following medical conditions: Cancer Patient maximum height was 66 Menopause Age: 49 No regular weight bearing exercise Drinks caffeinated beverages Onset of menses at age 16 Premenopausal Number of children 2 Impression: The patient's bone mass is within expected range for age, gender and ethnicity. Discussion: It is important to ask patients whether they are taking their medications and to encourage continued and appropriate compliance with their osteoporosis therapies to reduce fracture risk. It is also important to review their risk factors and encourage appropriate calcium and vitamin D intakes, exercise, fall prevention and other lifestyle measures. Follow-Up: Consider a repeat BMD and Vertebral Fracture Assessment (VFA) exam in 2 years or sooner if medically necessary, to reassess this patient's status. Reported by: ANNE-MARIE on 10/21/2025 10:54:00 AM. Reviewed, dictated and finalized at location A.
--- NOTE | ~2025-10-20 | MM_ITS ---
EXAMINATION: MM screening jo-ann BI w apple HISTORY: Screening TECHNIQUE: Craniocaudal and mediolateral oblique 3-D tomosynthesis images were obtained and synthetic 2-D images were generated. CAD analysis was submitted and interpreted. COMPARISON: Comparison to multiple prior studies sequentially, with oldest reviewed study dated 05/05/2019. BREAST PARENCHYMAL COMPOSITION: Dense: The breasts are heterogeneously dense, which may obscure small masses FINDINGS: There is no evidence of suspicious mass, calcification, or architectural distortion to suggest malignancy in either breast. There has been no suspicious interval change. IMPRESSION: 1. No mammographic evidence of malignancy. 2. Recommend routine screening mammography in one year. BI-RADS Category 1: Negative Reviewed, dictated and finalized at location O. 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
--- OUTSIDE RECORDS SUMMARY | 2025-10-20 15:20 | XMS_ITS | Clinical Summary ---
Author Organization [facility] Address [address], [address] [address] Phone Care Team Providers Care Outside Parts Sales Name Role Phone Kari Cota MD Unavailable Eldon Barakat MD Primary Care Provider + [...] Most Recently Relevant to Health Maintenance Insurance [facility] Care Teams Outside Parts Sales Relationship Specialty Start Date End Date Eldon Barakat MD [address] [place] [address] PCP - General Family Medicine 10/23/18 Kari Cota MD [address] [facility] [place] [address] Family Medicine 08/13/18
== END 2025-10-20 14:16 | disposition home or self-care (01) ==
PROVIDERS: PCP Family Medicine Adolescent Medicine; Visit Provider Obstetrics & Gynecology
DX: Z12.31 Encounter for screening mammogram for malignant neoplasm of breast (principal); E89.0 Postprocedural hypothyroidism; Z78.0 Asymptomatic menopausal state; M85.89 Other specified disorders of bone density and structure, multiple sites
CPT/HCPCS: 77063; 77067; 77080

== ENCOUNTER 2025-10-25 12:29 | Outpatient (CLI) | payer MEDICARE, SELFPAY ==
--- OUTSIDE RECORDS SUMMARY | 2025-10-25 12:34 | XMS_ITS | Clinical Summary ---
Author Organization [facility] Address [address], [address] [address] Phone Care Team Providers Care Machine Chain Maker Name Role Phone Kari Cota MD Unavailable [phone] Eldon Barakat MD Primary Care Provider [...] Most Recently Relevant to Health Maintenance Insurance [facility] Care Teams Machine Chain Maker Relationship Specialty Start Date End Date Eldon Barakat MD [address] [place] [address] PCP - General Family Medicine 10/23/18 Kari Cota MD [address] [facility] [place] [address] Family Medicine 08/13/18
[2025-10-25 13:17] LABS: CRP < 0.5 mg/dL (<1.0)
[2025-10-25 13:31] LABS: Free T4 Free Thyroxine 1.62 ng/dL (0.78-2.19)
[2025-10-25 13:49] LABS: Thyroid Stimulating Hormone < 0.015 uIU/mL (0.465-4.680)
[2025-10-28 13:08] LABS: ANA by IFA Rfx Titer/Pattern Positive (.)
== END 2025-10-25 12:30 | disposition home or self-care (01) ==
PROVIDERS: PCP Family Medicine Adolescent Medicine; Visit Provider Family Medicine Adolescent Medicine
DX: R76.89 Other specified abnormal immunological findings in serum (principal); M25.50 Pain in unspecified joint; E89.0 Postprocedural hypothyroidism
CPT/HCPCS: 36415; 84439; 84443; 85652; 86038; 86140; 86430